=== PATIENT | male | born 1960 | race Caucasian/White ===

== ENCOUNTER 2017-01-05 18:07 | Inpatient (IN) | payer BC ==
--- NOTE | ~2017-01-05 | HP ---
History And Physical [facility] [address] [place]. [address] NAME: ROBERTO HUDSON : 60 STATUS : ADM IN [facility]#: [id number] AGE: 56 ADM/REG DATE : 01/05/17 MR#: [id number] REPORT SERV DATE: 01/06/17 DICTATED BY: JULIEN SERRA V. DATE: 01/05/17 REPORT STATUS : Draft TRANSCRIBED BY: MODL DATE: 01/05/17 DATE OF ADMISSION: 01/05/2017 A Renal H and P COMPLAINT: Dizziness and presyncope. HISTORY OF PRESENT ILLNESS: Mr. Hudson is a 56-year-old gentleman who dialyzes Thursday, , Thursday, to [facility] due to ESRD from autosomal dominant polycystic kidney disease. He also has a history of coronary artery disease requiring bypass surgery in the past and implanted defibrillator as well. He states he has had presyncope for the last 3 to 4 days. He has had some sharp substernal chest pain without radiation for the last couple of days. Occasional dyspnea with exertion. He denies any history of nausea, vomiting, or diarrhea. He did attend his usual maintenance hemodialysis session on 01/03/2017, and had some episodes of hypotension during those treatment that responded to volume resuscitation. He is followed by Dr. Elizabeth with [facility] and is scheduled to see him later this month. PAST MEDICAL HISTORY: 1. Polycystic kidney disease with ESRD. 2. Hypertension. 3. Coronary artery disease. 4. Hyperlipidemia. PAST SURGICAL HISTORY: Includes a left upper arm AV fistula placement, right IJ PermCath placement, coronary artery bypass grafting, and AICD placement. SOCIAL HISTORY: Quit smoking in 2000. No alcohol or illicit drug use. FAMILY HISTORY: Remarkable for polycystic kidney disease, heart failure, and stroke. ALLERGIES: NO KNOWN DRUG ALLERGIES. CURRENT MEDICATIONS: Include Tylenol, albuterol, amiodarone, baby aspirin, atorvastatin, Coreg, vitamin D, doxepin, fenofibrate, furosemide, hydralazine, isosorbide dinitrate, Synthroid, melatonin, Robaxin, omega-3 fatty acids, pantoprazole, potassium chloride, Effient, and Lyrica. REVIEW OF SYSTEMS: All review of systems are negative except as described above. PHYSICAL EXAMINATION: VITAL SIGNS: Temperature was 97.9, heart rate 60, blood pressure was 94/43. GENERAL: He is a pleasant middle-aged gentleman with no increased work of breathing. HEENT: Pupils equal, round, reactive to light. Sclerae were anicteric. Oropharynx is clear with no lesions. History And Physical [address] [place]. [address] NAME: ROBERTO HUDSON : 60 STATUS : ADM IN PAT#: [id number] AGE: 56 ADM/REG DATE : 01/05/17 MR#: [id number] REPORT SERV DATE: 01/06/17 DICTATED BY: JULIEN SERRA V. DATE: 01/05/17 REPORT STATUS : Draft TRANSCRIBED BY: CONSTANCE DATE: 01/05/17 NECK: Trachea midline. No thyromegaly. No supraclavicular nodes. No axillary lymph nodes. CHEST: Generally clear to auscultation with equal bilateral breath sounds. CARDIOVASCULAR: Regular rate and rhythm. No rub. ABDOMEN: Soft, nondistended. Bowel sounds are physiologic. No organomegaly. No hepatosplenomegaly. EXTREMITIES: Trace lower extremity edema. SKIN: Warm and dry. No rash or lesions. Left upper arm AV fistula with thrill and bruit. MUSCULOSKELETAL: No musculoskeletal joint tenderness, joint effusions was noted in knees or ankles bilaterally. EKG reviewed by me showed a paced rhythm QTc 500 milliseconds. LABORATORY DATA: White count 4.6, hematocrit 31%, potassium 4.2, BUN and creatinine of 88 and 7.7, calcium was 7.1, troponin of 0.03. IMPRESSION: A 56-year-old gentleman with end-stage renal disease with presyncope and history of coronary artery disease with unknown ejection fraction at the time of this dictation. He does have an implantable defibrillator and must have at least at one point had significant substrate for significant dysrhythmias. He denies any history of volume loss. He is on a few blood pressure medications and his hypotension appears to be new in onset. PLAN: 1. Check orthostatic vital signs. 2. Dialysis Thursday, , Thursday. We will use his right IJ PermCath. He said this was being used in the clinic. Serial cardiac enzymes. 3. Hold his blood pressure medications. 4. We will ask Cardiology to see. He may require further evaluation by them. 5. We will check thyroid function studies in the morning. 6. Hold diuretic therapy as well. CP/MODL Julien Serra M.D. / [id number] CC: Julien Serra M.D.
--- NOTE | ~2017-01-05 | DS ---
Discharge Summary [facility] [address] [facility] [place]. [address] NAME: ROBERTO HUDSON : 60 STATUS : DIS IN PAT#: [id number] AGE: 56 ADM/REG DATE : 01/05/17 MR#: [id number] REPORT SERV DATE: 01/19/17 DICTATED BY: ARSALAN TRIVEDI DATE: 01/16/17 REPORT STATUS : Draft TRANSCRIBED BY: MODIsha DATE: 01/16/17 Data Collection from hospitalization DISCHARGE DIAGNOSES: 1. Volume overload. 2. Coronary artery disease with decreased ejection fraction. 3. Hypertension. 4. Polycystic kidney disease - end-stage renal disease. 5. Hyperlipidemia. 6. Former smoker. CONSULTATIONS: Roberto Elizabeth MD. PROCEDURES: Cardiac catheterization and percutaneous coronary intervention on 01/07/2017. MEDICATIONS: Tylenol 1000 mg daily as needed, Proventil two inhalations as needed, Cordarone 200 mg twice a day, aspirin 81 mg daily, Lipitor 80 mg after supper, Coreg 25 mg twice a day, vitamin D 3000 units daily, Sinequan 50 mg twice a day, Lofibra 134 mg daily, Lasix 40 mg daily, levothyroxine 200 mcg daily, melatonin 5 mg at bedtime, Robaxin 750 mg twice a day, fish oil 1000 mg four times a day, Protonix 40 mg daily, Klor-Con 20 mEq twice a day, Effient 10 mg after supper, and Lyrica 100 mg twice a day. CONDITION AT DISCHARGE: Stable. DISPOSITION: The patient was discharged home on a renal diet with activities as instructed. He would follow up with Dr. Roberto Elizabeth as instructed. He would follow up for dialysis in [place] as instructed. HOSPITAL COURSE: This is a 56-year-old man who dialyzes on Tuesdays, , and Saturdays due to end-stage renal disease from autosomal dominant polycystic kidney disease; also had a history of coronary artery disease. He said that has had presyncope over the last three to four days. He has had some sharp substernal chest pain without radiation over the last couple of days as well. He had occasional dyspnea with exertion. He denied any history of nausea, vomiting, or diarrhea. He did attend his usual maintenance hemodialysis session on 01/03/2017 and had some episodes of hypotension during those treatments, that responded to volume resuscitation. He was admitted to the hospital at this time for further evaluation and treatment. Upon admission, we were going to check his orthostatic vital signs. Dialysis therapy would be performed. Serial cardiac enzymes would be checked. Blood pressure medications were held. Thyroid function studies would also be checked. Diuretic therapy would be held. The following day, he was seen by Dr. Roberto Elizabeth. The patient has a history of coronary artery disease and ischemic cardiomyopathy with a baseline ejection fraction of 25%-30% based on recent echocardiogram from June 2016. The patient reports that he had been in his usual state of health until the day of admission when he reported while doing dishes the abrupt onset of sharp substernal/epigastric pain. He reports that this was associated with dyspnea and a sensation of weakness and numbness in the upper extremity. He does endorse an exertion on dyspnea and intimate that his chest pain may also be exacerbated somewhat with Discharge Summary [address] [address] NAME: ROBERTO HUDSON : 60 STATUS : DIS IN PAT#: [id number] AGE: 56 ADM/REG DATE : 01/05/17 MR#: [id number] REPORT SERV DATE: 01/19/17 DICTATED BY: ARSALAN TRIVEDI DATE: 01/16/17 REPORT STATUS : Draft TRANSCRIBED BY: CONSTANCE DATE: 01/16/17 exertion. He did report an episode of severe weakness bordering on syncope. At this point in time, he was chest pain free. He was breathing easily. He denied any orthopnea. Aspirin and Effient were continued. We would consider starting a heparin drip for ongoing symptoms of chest pain. Myocardial infarction had been excluded. It was felt that the patient should undergo cardiac catheterization to define the patient's anatomy and exclude a large region of intervenable myocardial ischemia. On 01/07/2017, he was taken to the cardiac cath lab radiological technologist where he underwent the above-mentioned procedure by Dr. Roberto Elizabeth. He tolerated this well, and there were no complications. Midodrine had been added. He had undergone an echocardiogram as well. Catheterization results were reviewed. On postop day #1, he had mild shortness of breath. He had no chest pain or palpitations. He had no other complaints. Telemetry revealed normal sinus rhythm with chronic left bundle-branch block. The patient had moderately dilated left ventricle with severe left ventricular systolic dysfunction, ejection fraction 30%. There was more focal basal inferior hypokinesis and moderate left ventricular diastolic dysfunction. There was mild right ventricular enlargement with mildly decreased systolic function. There was moderate biatrial enlargement. There was mildly dilated aortic root at 4.0 cm. There was [id number] aortic mitral and tricuspid regurgitation. There was no significant change noted compared to previous echocardiogram dated 07/05/2016. Discharge planning was performed. On 01/09/2017, hemodialysis therapy continued. Creatinine level was 5.90. His lungs were clear. He was asymptomatic. Discharge instructions were given. Due to his improved and stable condition, he was discharged home with the above-stated instructions. Information collected by: Janet Galan I submit the above information as my discharge summary. TG/MODL Arsalan Trivedi M.D. / [id number] CC: Lou Woodruff MD
--- NOTE | ~2017-01-05 | CN ---
Consultation Report [facility] [address] [place]. [address] NAME: ROBERTO HUDSON : 60 STATUS : ADM IN PAT#: [id number] AGE: 56 ADM/REG DATE : 01/05/17 MR#: [id number] REPORT SERV DATE: 01/06/17 DICTATED BY: TAMEKAROBERTO BETSEY DATE: 01/06/17 REPORT STATUS : Draft TRANSCRIBED BY: MODL DATE: 01/06/17 CARDIOLOGY CONSULTATION NOTE DATE OF CONSULTATION: 01/06/2017 REASON FOR CONSULTATION: Chest pain and near syncopal event in a 56-year-old man with known severe coronary heart disease and ischemic cardiomyopathy. HISTORY OF PRESENT ILLNESS: Mr. Hudson is a medically complicated 56-year-old man, who is well known to me from Cardiology Clinic. The patient has chronic kidney disease, which recently progressed to end-stage renal disease. The patient is treated with hemodialysis and has been for the past several months. The patient also has history of coronary artery disease, and ischemic cardiomyopathy with a baseline ejection fraction of 25%-30% based on recent echocardiogram from 06/2016. The patient is status post coronary artery bypass grafting surgery with subsequent percutaneous coronary intervention. The patient was apparently in his usual state of health until yesterday morning. The patient reports that he was doing dishes when he had the abrupt onset of a sharp substernal/epigastric pain. He reports that, this was associated with dyspnea and a sensation of weakness and numbness in his upper extremities. The patient denies any nausea or diaphoresis. He does endorse exertional dyspnea, and intimates that his chest pain may also be exacerbated somewhat with exertion. The patient denies orthopnea or paroxysmal nocturnal dyspnea. He does report an episode of severe weakness bordering on syncope. He denies any palpitations associated with this. The patient did not sense any defibrillator discharges. At this time, the patient is chest pain-free. He is breathing easily and denies orthopnea. PAST MEDICAL HISTORY: 1. Polycystic kidney disease with end-stage renal disease. 2. Hypertension. 3. Coronary artery disease, status post coronary artery bypass grafting. 4. Dyslipidemia. PAST SURGICAL HISTORY: 1. The patient has had coronary artery bypass grafting in the distant past. He had a cardiac catheterization in 2014 with percutaneous coronary intervention to the ramus intermedius. He has had placement of an AICD. Of note, the patient has unusual anatomy of his coronary sinus, and a biventricular pacemaker was unable to be placed. 2. The patient has had a recent AV fistula placement for hemodialysis. FAMILY HISTORY: Significant for polycystic kidney disease, congestive heart failure, and stroke. SOCIAL HISTORY: The patient quit smoking in the year 2000. He has no ongoing tobacco, Consultation Report [place] [id number] [facility] [place]. [address] NAME: ROBERTO HUDSON : 60 STATUS : ADM IN PAT#: [id number] AGE: 56 ADM/REG DATE : 01/05/17 MR#: [id number] REPORT SERV DATE: 01/06/17 DICTATED BY: ROBERTO ELIZABETH DATE: 01/06/17 REPORT STATUS : Draft TRANSCRIBED BY: CONSTANCE DATE: 01/06/17 alcohol, or drug use. ALLERGIES: THE PATIENT HAS NO KNOWN MEDICATION ALLERGIES. HOME MEDICATIONS: 1. Acetaminophen 1 g p.o. daily as needed. 2. Albuterol inhaler two puffs q.4 hours as needed for shortness of breath. 3. Amiodarone 200 mg p.o. twice daily. 4. Aspirin 81 mg p.o. daily. 5. Atorvastatin 80 mg p.o. at bedtime. 6. Carvedilol 25 mg p.o. twice daily. 7. Vitamin D 3000 units p.o. daily. 8. Sinequan 50 mg p.o. twice daily. 9. Fenofibrate 134 mg p.o. daily. 10.Lasix 20 mg p.o. daily. 11.Hydralazine 25 mg p.o. twice daily. 12.Isosorbide dinitrate 20 mg p.o. twice daily. 13.Levothyroxine 200 mcg p.o. daily. 14.Melatonin 5 mg p.o. at bedtime. 15.Methocarbamol 750 mg p.o. twice daily. 16.Fish oil supplement 1 g p.o. four times daily. 17.Pantoprazole 40 mg p.o. daily. 18.Potassium chloride 20 mEq p.o. twice daily. 19.Effient 10 mg p.o. daily. 20.Lyrica 100 mg p.o. twice daily. REVIEW OF SYSTEMS: A complete 12-system review was performed. This is noncontributory except for the pertinent positives and negatives noted in the history of present illness above. PHYSICAL EXAMINATION: VITAL SIGNS: Temperature is 97.7 degrees Fahrenheit, blood pressure is 133/60 mmHg, heart rate is 88 beats per minute and regular, respirations 18, and oxygen saturation is 98% on room air. CONSTITUTIONAL: The patient is an obese and chronically ill-appearing white man, who is currently in no acute distress. EYES: PERRL, EOMI, clear conjunctiva. HEAD/MNT: NCAT with moist mucous membranes and grossly normal hard and soft palate. NECK: Supple with no obvious thyromegaly or lymphadenopathy CARDIOVASCULAR: There is a regular rhythm with a normal S1 and a physiologically split second heart sound. No obvious murmurs, rubs, or gallops are noted at this time. The jugular venous pressure is grossly normal. PULMONARY: Clear to auscultation bilaterally with no wheezing, rales, rhonchi, or dullness to percussion. ABDOMINAL: Soft, non-tender, non-distended with no hepatosplenomegaly noted. Consultation Report [address] [place]. [address] NAME: ROBERTO HUDSON : 60 STATUS : ADM IN [facility]#: [id number] AGE: 56 ADM/REG DATE : 01/05/17 MR#: [id number] REPORT SERV DATE: 01/06/17 DICTATED BY: ROBERTO ELIZABETH DATE: 01/06/17 REPORT STATUS : Draft TRANSCRIBED BY: CONSTANCE DATE: 01/06/17 EXTREMITIES: There is trace edema at the ankles with no significant clubbing or cyanosis. There is a 1 to 2+ right femoral artery pulse. MUSCULOSKELETAL: Grossly normal strength and range of motion in all extremities INTEGUMENTARY: Skin appears intact with no bruises, wounds or active lesions noted NEURO/PSYC: Alert and oriented x3, with no dysarthria, facial droop or lateralizing weakness noted. 12-LEAD EKG: The patient's 12-lead EKG shows sinus rhythm with a first degree AV block and then left bundle-branch block pattern which is chronic. There are no specific signs of ischemia or infarction. LABORATORY DATA: White blood cell count 4.6, hemoglobin 10.4, hematocrit 31, platelets 125. Electrolytes show a sodium of 138, potassium 4.2, chloride is 100, CO2 of 23, BUN 88, creatinine 7.73, glucose is 90, calcium 7.1, magnesium 1.9. Troponin I is 0.03. A second troponin I is also 0.03. Random cortisol was 19.5. ASSESSMENT AND PLAN: 1. Chest pain with typical and atypical features: The patient describes a sharp chest pain which is not entirely typical for angina, but the fact that the pain was apparently provoked by exertion and associated with shortness of breath are concerning features. The patient has advanced coronary heart disease with a chronic total occlusion of his right coronary artery and a stent placed in a relatively large ramus intermedius branch in the year 2013. The patient would not be likely to benefit from a myocardial perfusion imaging study given his complex anatomy. We will therefore proceed with cardiac catheterization to define the patient's anatomy and exclude a large region of intervenable myocardial ischemia. Risks and benefits of cardiac catheterization have been discussed with the patient. Now that the patient is on hemodialysis, the risk of contrast exposure is somewhat decreased. The patient will continue aspirin and Effient. We will consider starting a heparin drip for ongoing symptoms of chest pain. Again, myocardial infarction has been excluded. 2. Chronic systolic heart failure: We will start lisinopril 5 mg p.o. daily, if this is agreeable to the Nephrology Service. The patient appears grossly euvolemic at this time. 3. End-stage renal disease: The Nephrology Service has admitted the patient and the patient has received hemodialysis today. Thank you for allowing me to participate in the care Mr. Hudson. The Cardiology Service will continue to follow the patient closely during this admission. VALDOH/MODIsha Roberto Elizabeth MD Consultation Report [address] [address] NAME: ROBERTO HUDSON : 60 STATUS : ADM IN PAT#: [id number] AGE: 56 ADM/REG DATE : 01/05/17 MR#: [id number] REPORT SERV DATE: 01/06/17 DICTATED BY: ROBERTO ELIZABETH DATE: 01/06/17 REPORT STATUS : Draft TRANSCRIBED BY: CONSTANCE DATE: 01/06/17 / [id number] CC: Julien Serra M.D.
[2017-01-05 16:41] LABS: BASOPHILS 0.9 %; BASOPHILS ABSOLUTE 0.04 10/3/uL (0.0-0.16); EOSINOPHILS ABSOLUTE 0.09 10/3/uL (0.0-0.53); HEMOGLOBIN 10.4 g/dL (13.6-17.8); IMMATURE GRANULOCYTES 1.3 %; IMMATURE GRANULOCYTES ABSOLUTE 0.06 10/3/uL (0.0-0.11); LYMPHOCYTES 18.9 %; LYMPHOCYTES ABSOLUTE 0.87 10/3/uL (0.67-4.30); MEAN CORPUS HGB CONC 33.3 g/dL (32.0-36.0); MEAN CORPUSCULAR HEMOGLOB 32.5 pg (26.0-34.0); MEAN PLATELET VOLUME 11.2 fL (9.2-13.0); MONOCYTES 11.3 %; MONOCYTES ABSOLUTE 0.52 10/3/uL (0.21-1.20); NEUTROPHILS 65.6 %; NEUTROPHILS ABSOLUTE 3.02 10/3/uL (2.02-8.40); PLATELET COUNT 125 10/3/uL (150-400); RBC DISTRIBUTION WIDTH 14.7 % (12.0-16.0); WHITE BLOOD CELLS 4.6 10/3/uL (4.5-10.5)
[2017-01-05 16:42] LABS: HEMATOCRIT 31.2 % (40.0-51.0); MANUAL DIFF NO %; MEAN CORPUSCULAR VOLUME 97.5 fL (80-100)
[2017-01-05 16:46] LABS: INTERNATIONAL NORMAL RATI 1.2 UNITS (-); PARTIAL THROMBO TIME 31.4 SEC (22.5-37.2); PROTIME (NOT ORD) 14.9 SEC (12.0-14.5)
[2017-01-05 16:55] LABS: ACETAMINOPHEN LEVEL (TYLENOL) < 2.0 MCG/ML (10.0-20.0); ALCOHOL < 10 MG/DL (0); SALICYLATE < 1.7 MG/DL (-)
[2017-01-05 16:57] LABS: CALCIUM, SERUM 7.1 MG/DL (8.5-10.4); CHEST PAIN PROFILE TAT 0 Hrs 22 Mins; CHLORIDE, SERUM 100 MMOL/L (96-112); CO2 (CARBON DIOXIDE) 23 MMOL/L (24-34); POTASSIUM, SERUM 4.2 MMOL/L (3.5-5.3); SODIUM, SERUM 138 MMOL/L (135-148); TROPONIN I 0.03 NG/ML (<0.05)
[2017-01-05 16:59] LABS: BUN (BLOOD UREA NITROGEN) 88 MG/DL (6-23); CREATININE 7.73 MG/DL (0.70-1.30); GFR AFRICAN AMERICAN 8 ML/MIN (>=60); GFR NON AFRICAN AMERICAN 7 ML/MIN (>=60); GLUCOSE, SERUM 90 MG/DL (60-99); LACTATE 0.3 MMOL/L (0.3-2.4)
[~2017-01-05 18:07] MED LIST: ACET500CAP PO; APRES25 PO; ASAB PO; BIDIL20/37 PO; CORDARONE PO; COREG25 PO; EFFIENT10 PO; FISH-EPA1000 MG PO; ISORDIL20 PO; KLOR-CON M2020 MEQ PO; L20 PO; LEVOTHYROXIN100 MCG PO; LEVOTHYROXIN200 MCG PO; LIPITOR80 MG PO; LOFIBRA134 MG PO; LYRICA100 MG PO; LYRICA150 MG PO; MELATONIN5 M1 PO; METHOC750B PO; PROTONIX PO; PROVHFA PO; SINEQUAN 50 MG50 MG PO; VITAMIN D1000 UNI1 PO; VITAMIN D31000 UNIT PO
[2017-01-06 07:11] LABS: BASOPHILS 0.8 %; BASOPHILS ABSOLUTE 0.05 10/3/uL (0.0-0.16); EOSINOPHILS 1.5 %; EOSINOPHILS ABSOLUTE 0.09 10/3/uL (0.0-0.53); HEMATOCRIT 31.2 % (40.0-51.0); HEMOGLOBIN 10.2 g/dL (13.6-17.8); IMMATURE GRANULOCYTES ABSOLUTE 0.06 10/3/uL (0.0-0.11); LYMPHOCYTES 13.6 %; LYMPHOCYTES ABSOLUTE 0.82 10/3/uL (0.67-4.30); MANUAL DIFF NO %; MEAN CORPUS HGB CONC 32.7 g/dL (32.0-36.0); MEAN CORPUSCULAR HEMOGLOB 32.3 pg (26.0-34.0); MEAN CORPUSCULAR VOLUME 98.7 fL (80-100); MEAN PLATELET VOLUME 11.6 fL (9.2-13.0); MONOCYTES 12.7 %; MONOCYTES ABSOLUTE 0.77 10/3/uL (0.21-1.20); NEUTROPHILS 70.4 %; NEUTROPHILS ABSOLUTE 4.26 10/3/uL (2.02-8.40); PLATELET COUNT 118 10/3/uL (150-400); RBC DISTRIBUTION WIDTH 14.9 % (12.0-16.0); RED CELL COUNT 3.16 10/6/uL (4.7-6.1); WHITE BLOOD CELLS 6.1 10/3/uL (4.5-10.5)
[2017-01-06 07:50] LABS: ALBUMIN 3.3 G/DL (3.5-5.0); BUN (BLOOD UREA NITROGEN) 94 MG/DL (6-23); CALCIUM, SERUM 7.4 MG/DL (8.5-10.4); CHLORIDE, SERUM 103 MMOL/L (96-112); CO2 (CARBON DIOXIDE) 21 MMOL/L (24-34); CREATININE 7.88 MG/DL (0.70-1.30); FREE T4 1.34 NG/DL (0.76-1.46); GFR AFRICAN AMERICAN 8 ML/MIN (>=60); GFR NON AFRICAN AMERICAN 7 ML/MIN (>=60); GLUCOSE, SERUM 80 MG/DL (60-99); PHOSPHORUS, SERUM 7.1 MG/DL (2.5-4.5); POTASSIUM, SERUM 3.9 MMOL/L (3.5-5.3); SODIUM, SERUM 140 MMOL/L (135-148); TROPONIN I 0.03 NG/ML (<0.05)
[2017-01-07 05:15] LABS: BASOPHILS 0.7 %; BASOPHILS ABSOLUTE 0.03 10/3/uL (0.0-0.16); EOSINOPHILS 2.2 %; EOSINOPHILS ABSOLUTE 0.09 10/3/uL (0.0-0.53); HEMATOCRIT 30.7 % (40.0-51.0); HEMOGLOBIN 10.2 g/dL (13.6-17.8); IMMATURE GRANULOCYTES ABSOLUTE 0.04 10/3/uL (0.0-0.11); LYMPHOCYTES 17.2 %; LYMPHOCYTES ABSOLUTE 0.71 10/3/uL (0.67-4.30); MEAN CORPUS HGB CONC 33.2 g/dL (32.0-36.0); MEAN CORPUSCULAR HEMOGLOB 32.5 pg (26.0-34.0); MEAN CORPUSCULAR VOLUME 97.8 fL (80-100); MEAN PLATELET VOLUME 11.2 fL (9.2-13.0); MONOCYTES 15.5 %; MONOCYTES ABSOLUTE 0.64 10/3/uL (0.21-1.20); NEUTROPHILS 63.4 %; NEUTROPHILS ABSOLUTE 2.61 10/3/uL (2.02-8.40); PLATELET COUNT 111 10/3/uL (150-400); RED CELL COUNT 3.14 10/6/uL (4.7-6.1); WHITE BLOOD CELLS 4.1 10/3/uL (4.5-10.5)
[2017-01-07 05:16] LABS: MANUAL DIFF NO %
[2017-01-07 05:32] LABS: CALCIUM, SERUM 7.4 MG/DL (8.5-10.4); CHLORIDE, SERUM 106 MMOL/L (96-112); CHOL/HDL RATIO(NOT ORDER) 6.3 (0-5); CHOLESTEROL 189 MG/DL (< 200); CO2 (CARBON DIOXIDE) 24 MMOL/L (24-34); GFR AFRICAN AMERICAN 12 ML/MIN (>=60); GFR NON AFRICAN AMERICAN 11 ML/MIN (>=60); GLUCOSE, SERUM 87 MG/DL (60-99); HDL CHOLESTEROL 30 MG/DL (> 39); LDL CHOLESTEROL 117 MG/DL (< 130); NON-HDL CHOLESTEROL 159 MG/DL (< 160); POTASSIUM, SERUM 3.7 MMOL/L (3.5-5.3); SODIUM, SERUM 142 MMOL/L (135-148); TRIGLYCERIDE 212 MG/DL (< 150)
[2017-01-07 05:34] LABS: BUN (BLOOD UREA NITROGEN) 57 MG/DL (6-23); CREATININE 5.56 MG/DL (0.70-1.30)
[2017-01-08 04:41] LABS: BASOPHILS 1.1 %; BASOPHILS ABSOLUTE 0.05 10/3/uL (0.0-0.16); EOSINOPHILS 2.2 %; HEMATOCRIT 32.8 % (40.0-51.0); HEMOGLOBIN 10.4 g/dL (13.6-17.8); IMMATURE GRANULOCYTES 0.9 %; IMMATURE GRANULOCYTES ABSOLUTE 0.04 10/3/uL (0.0-0.11); LYMPHOCYTES 14.6 %; LYMPHOCYTES ABSOLUTE 0.66 10/3/uL (0.67-4.30); MEAN CORPUS HGB CONC 31.7 g/dL (32.0-36.0); MEAN CORPUSCULAR HEMOGLOB 31.4 pg (26.0-34.0); MEAN CORPUSCULAR VOLUME 99.1 fL (80-100); MEAN PLATELET VOLUME 11.5 fL (9.2-13.0); MONOCYTES 14.2 %; MONOCYTES ABSOLUTE 0.64 10/3/uL (0.21-1.20); NEUTROPHILS ABSOLUTE 3.03 10/3/uL (2.02-8.40); PLATELET COUNT 123 10/3/uL (150-400); RBC DISTRIBUTION WIDTH 15.3 % (12.0-16.0); RED CELL COUNT 3.31 10/6/uL (4.7-6.1); WHITE BLOOD CELLS 4.5 10/3/uL (4.5-10.5)
[2017-01-08 04:49] LABS: ALBUMIN 3.2 G/DL (3.5-5.0); BUN (BLOOD UREA NITROGEN) 57 MG/DL (6-23); CALCIUM, SERUM 7.5 MG/DL (8.5-10.4); CHLORIDE, SERUM 104 MMOL/L (96-112); CO2 (CARBON DIOXIDE) 24 MMOL/L (24-34); GFR AFRICAN AMERICAN 11 ML/MIN (>=60); GFR NON AFRICAN AMERICAN 10 ML/MIN (>=60); GLUCOSE, SERUM 88 MG/DL (60-99); POTASSIUM, SERUM 3.9 MMOL/L (3.5-5.3); SODIUM, SERUM 142 MMOL/L (135-148)
[2017-01-08 04:50] LABS: PHOSPHORUS, SERUM 4.6 MG/DL (2.5-4.5)
[2017-01-08 04:52] LABS: MANUAL DIFF NO %
[2017-01-09 10:49] LABS: BASOPHILS 0.7 %; BASOPHILS ABSOLUTE 0.05 10/3/uL (0.0-0.16); EOSINOPHILS 2.1 %; EOSINOPHILS ABSOLUTE 0.15 10/3/uL (0.0-0.53); HEMATOCRIT 35.5 % (40.0-51.0); HEMOGLOBIN 11.4 g/dL (13.6-17.8); IMMATURE GRANULOCYTES 0.4 %; IMMATURE GRANULOCYTES ABSOLUTE 0.03 10/3/uL (0.0-0.11); LYMPHOCYTES 10.8 %; LYMPHOCYTES ABSOLUTE 0.76 10/3/uL (0.67-4.30); MEAN CORPUS HGB CONC 32.1 g/dL (32.0-36.0); MEAN CORPUSCULAR HEMOGLOB 31.6 pg (26.0-34.0); MEAN CORPUSCULAR VOLUME 98.3 fL (80-100); MEAN PLATELET VOLUME 11.9 fL (9.2-13.0); MONOCYTES 10.1 %; MONOCYTES ABSOLUTE 0.71 10/3/uL (0.21-1.20); NEUTROPHILS 75.9 %; NEUTROPHILS ABSOLUTE 5.32 10/3/uL (2.02-8.40); PLATELET COUNT 135 10/3/uL (150-400); RBC DISTRIBUTION WIDTH 15.2 % (12.0-16.0); RED CELL COUNT 3.61 10/6/uL (4.7-6.1)
[2017-01-09 10:50] LABS: MANUAL DIFF NO %
[2017-01-09 10:58] LABS: ALBUMIN 3.5 G/DL (3.5-5.0); BUN (BLOOD UREA NITROGEN) 47 MG/DL (6-23); CALCIUM, SERUM 7.8 MG/DL (8.5-10.4); CHLORIDE, SERUM 103 MMOL/L (96-112); CO2 (CARBON DIOXIDE) 25 MMOL/L (24-34); GFR AFRICAN AMERICAN 10 ML/MIN (>=60); GFR NON AFRICAN AMERICAN 8 ML/MIN (>=60); GLUCOSE, SERUM 129 MG/DL (60-99); PHOSPHORUS, SERUM 3.8 MG/DL (2.5-4.5); SODIUM, SERUM 140 MMOL/L (135-148)
[2017-01-18] MEDS ORDERED: ISORDIL20 PO (18:00)
[2017-01-18] MEDS ORDERED: APRES25 PO (18:02)
[2017-03-07] MEDS ORDERED: KLOR-CON M2020 MEQ PO (18:40)
[2017-03-07] MEDS ORDERED: TRILIPIX135 MG PO (18:41)
[2017-03-07] MEDS ORDERED: LIPITOR80 MG PO (18:42)
[2017-03-07] MEDS ORDERED: SINEQUAN 50 MG50 MG PO (18:43)
[2017-03-07] MEDS ORDERED: LEVOTHYROXIN200 MCG PO (18:43)
[2017-03-07] MEDS ORDERED: COREG25 PO (18:44)
[2017-03-07] MEDS ORDERED: CORDARONE PO (18:44)
[2017-03-07] MEDS ORDERED: ASAB PO (18:48)
[2017-03-07] MEDS ORDERED: L20 PO (18:48)
[2017-03-07] MEDS ORDERED: LYRICA100 MG PO (18:48)
[2017-03-07] MEDS ORDERED: EFFIENT10 PO (18:48)
[2017-03-07] MEDS ORDERED: MELATONIN5 M1 PO (18:49)
[2017-03-07] MEDS ORDERED: FISH-EPA1000 MG PO (18:50)
[2017-03-07] MEDS ORDERED: APRES25 PO (18:50)
[2017-03-07] MEDS ORDERED: METHOC750B PO (18:50)
[2017-03-07] MEDS ORDERED: ISORDIL20 PO (18:51)
[2017-03-07] MEDS ORDERED: VITAMIN D31000 UNIT PO (18:52)
[2017-03-07] MEDS ORDERED: PROTONIX PO (18:52)
[2017-07-22] MEDS ORDERED: NORCO1 TA2 PO (00:50)
[2017-07-22] MEDS ORDERED: Z100 PO (00:50)
[2017-07-22] MEDS ORDERED: LIPITOR80 MG PO (00:50)
[2017-07-22] MEDS ORDERED: L40 PO (00:51)
[2017-07-22] MEDS ORDERED: COREG25 PO (00:51)
[2017-07-22] MEDS ORDERED: LOFIBRA134 MG PO (00:51)
[2017-07-22] MEDS ORDERED: BUSPAR5 PO (00:51)
[2017-07-22] MEDS ORDERED: NITROSTAT0.4 MG SL (00:52)
[2017-07-22] MEDS ORDERED: APRES25 PO (00:52)
[2017-07-22] MEDS ORDERED: LYRICA150 MG PO (00:52)
[2017-07-22] MEDS ORDERED: SYN.15 PO (00:52)
[2017-07-22] MEDS ORDERED: RAN500 PO (00:53)
[2017-07-22] MEDS ORDERED: PROTONIX PO (00:53)
[2017-07-22] MEDS ORDERED: EFFIENT10 PO (00:53)
[2017-07-22] MEDS ORDERED: CORDARONE PO (00:54)
[2017-07-22] MEDS ORDERED: ASTELIN NAS (00:55)
[2017-07-22] MEDS ORDERED: TUMSROLL PO (00:56)
[2017-07-22] MEDS ORDERED: MELATONIN5 M1 PO (00:57)
[2017-07-22] MEDS ORDERED: FISH-EPA1000 MG PO (00:57)
[2017-07-24] MEDS ORDERED: PROAMAT5 PO (14:26)
[2017-07-24] MEDS ORDERED: ASA5GR PO (14:30)
== END 2017-01-09 15:45 | disposition home or self-care (01) | DRG 246 ==
LOC: ER 18:07 → 1SO 18:59 → SSU1 01-07 15:08
PROVIDERS: Emergency Medicine; Internal Medicine Cardiovascular Disease; Internal Medicine Nephrology; Registered Nurse
PROC: 027135Z Dilation of Coronary Artery, Two Arteries with Two Drug-eluting Intraluminal Devices, Percutaneous Approach (ICD-10-PCS; principal; 2017-01-07)
PROC: B2151ZZ Fluoroscopy of Left Heart using Low Osmolar Contrast (ICD-10-PCS; 2017-01-07)
PROC: B2131ZZ Fluoroscopy of Multiple Coronary Artery Bypass Grafts using Low Osmolar Contrast (ICD-10-PCS; 2017-01-07)
PROC: B2181ZZ Fluoroscopy of Left Internal Mammary Bypass Graft using Low Osmolar Contrast (ICD-10-PCS; 2017-01-07)
PROC: B2111ZZ Fluoroscopy of Multiple Coronary Arteries using Low Osmolar Contrast (ICD-10-PCS; 2017-01-07)
PROC: 4A023N7 Measurement of Cardiac Sampling and Pressure, Left Heart, Percutaneous Approach (ICD-10-PCS; 2017-01-07)
DX: I13.2 Hypertensive heart and chronic kidney disease with heart failure and with stage 5 chronic kidney disease, or end stage renal disease (principal); N18.6 End stage renal disease; I50.22 Chronic systolic (congestive) heart failure; I25.5 Ischemic cardiomyopathy; I25.10 Atherosclerotic heart disease of native coronary artery without angina pectoris; E78.00 Pure hypercholesterolemia, unspecified; Z95.1 Presence of aortocoronary bypass graft; Z99.2 Dependence on renal dialysis; Z95.810 Presence of automatic (implantable) cardiac defibrillator; Z87.891 Personal history of nicotine dependence
CPT/HCPCS: 71010; 80048; 80061; 80069; 80307; 82330; 82533; 83605; 83735; 84439; 84443; 84484; 85025; 85347; 85610; 85730; 87040; 93005; 93306; 93459; 99152; 99153; 99285; A9270-GY; C1725; C1769; C1874; C1887; C1894; C9600; G0257; J2250; J2800; J2997; J3010; Q9967

== ENCOUNTER 2017-01-18 21:11 | Inpatient (IN) | payer BC ==
--- NOTE | ~2017-01-18 | DS ---
Discharge Summary [facility] [address] [facility] [place]. [address] NAME: ROBERTO HUDSON : 60 STATUS : DIS IN PAT#: [id number] AGE: 56 ADM/REG DATE : 01/18/17 MR#: [id number] REPORT SERV DATE: 01/29/17 DICTATED BY: KOBE RIOS DATE: 01/28/17 REPORT STATUS : Draft TRANSCRIBED BY: CONSTANCE DATE: 01/28/17 Data Collection from hospitalization DISCHARGE DIAGNOSES: 1. End-stage renal disease. 2. Chest pain. 3. Hypotension. 4. Hypertension. 5. Chronic systolic congestive heart failure. 6. Hypercholesterolemia. 7. Ischemic cardiomyopathy. 8. Former smoker. 9. Depression. 10.History of polycystic kidney disease. CONSULTATION: Dr. Valentin Avendaño. PROCEDURES PERFORMED: None. DISCHARGE MEDICATIONS: Tylenol 1000 mg daily as needed, Proventil two inhalations as needed, Cordarone 200 mg twice a day as instructed, aspirin 81 mg daily, Lipitor 80 mg after supper, Coreg 12.5 mg twice a day, vitamin D 3000 units daily, Sinequan 50 mg twice a day, Lofibra 134 mg daily, Isordil 20 mg twice a day, levothyroxine 200 mcg daily, melatonin 5 mg at bedtime, Robaxin 750 mg twice a day, fish oil 2000 mg twice a day, Protonix 40 mg daily, Effient 10 mg after supper, Lyrica 100 mg twice a day. CONDITION AT DISCHARGE: Stable. DISPOSITION: The patient was discharged home on a renal diet with activities as instructed. HOSPITAL COURSE: This is a 56-year-old man, who dialyzes on Mondays, Wednesdays, and Fridays. He has been on dialysis for six months due to polycystic kidney disease. He has significant atherosclerotic cardiovascular disease and had undergone bypass surgery in 2009. He has chronic systolic dysfunction. He has an AICD related to his reduced ejection fraction. His last cardiac catheterization had been in 2014 with percutaneous intervention to his ramus intermediate. He was making breakfast on the morning prior to this admission when he had an episode of severe retrosternal chest pain, localized to his chest with diaphoresis and shortness of breath. He took a couple of nitroglycerin and laid down with some relief of his pain. However, his family called the EMS and was brought here to [facility] and his troponins were found to be 0.05, 0.06, and 0.07. He was admitted to the hospital at this time for further evaluation and treatment. Upon admission, he was chest pain free. He was seen by Dr. Valentin Avendaño regarding chest pain. His troponins have been borderline elevated and flat with no significant change. Creatinine level was 6.79. Electrocardiogram showed paced rhythm. Nonspecific intraventricular conduction delay. His chest pain was fairly atypical overall. He said it was similar to what he had previously. At that time, he did have a ramus lesion. It was unclear whether he was having ischemia. At that time, his troponins were not elevated and Discharge Summary [place] [id number] [facility] [place]. [address] NAME: ROBERTO HUDSON : 60 STATUS : DIS IN PAT#: [id number] AGE: 56 ADM/REG DATE : 01/18/17 MR#: [id number] REPORT SERV DATE: 01/29/17 DICTATED BY: KOBE RIOS DATE: 01/28/17 REPORT STATUS : Draft TRANSCRIBED BY: CONSTANCE DATE: 01/28/17 that were now borderline elevated and flat. He did not think we should pursue further invasive evaluation unless he had recurrent pain and objective findings of ischemia either by further rising of troponin or changes in his EKG or unstable chest pain syndrome. He recommended that he continue his current medical therapy. Troponin would be rechecked as well as an EKG. He did have some hypotension. The patient does have a history of hypertension. On the , the patient said he had not had any recurrence of chest pain. He denied any shortness of breath. The nurse reported that he was wearing 2 L nasal cannula at night due to obstructive sleep apnea. His O2 saturation had decreased to 88% when sleeping while on room air. With 2 L nasal cannula, it increased to 97% to 98%. Coreg was decreased. Discharge planning was performed. On 01/21/2017, he had no specific complaints. He had no further chest pain. He denied shortness of breath. Discharge instructions were given. Due to his improved and stable condition, he was discharged home with the above- stated instructions. Information collected by: Janet Galan I submit the above information as my discharge summary. KARYNA/CONSTANCE Kobe Rios M.D. / [id number] CC: Lou Woodruff M.D., Ph.D, F.A.C.C.
--- NOTE | ~2017-01-18 | CN ---
Consultation Report [facility] [address] [facility] [place]. [address] NAME: ROBERTO GRIMALDO : 60 STATUS : ADM Fauzia PAT#: [id number] AGE: 56 ADM/REG DATE : 01/18/17 MR#: [id number] REPORT SERV DATE: 01/19/17 DICTATED BY: VALENTIN SINGH DATE: 01/19/17 REPORT STATUS : Draft TRANSCRIBED BY: MODL DATE: 01/19/17 CARDIOLOGY CONSULTATION DATE OF CONSULTATION: [facility] PHYSICIAN: Roberto Elizabeth MD REASON FOR CONSULTATION: Chest pain. HISTORY OF PRESENT ILLNESS: Mr. Grimaldo is a 56-year-old man with coronary artery disease and ischemic cardiomyopathy. He was just admitted a couple weeks ago with sharp chest pain. He had an evaluation including arteriography and PCI and initially did well. He described new onset sharp chest pain a couple weeks ago. It had some exertional component at that time. He had an arteriogram showing multi-vessel disease, patent grafts, but a lesion in a ramus branch which underwent PCI, since that time, his pain improved, but it did not resolve completely. He had some ongoing pain, and yesterday had some nausea and some worsening sharp chest pain, it was a focal right lower chest pain that he points with 1 finger. It was worse when he got up and moved around and better when he laid down but did not appear as much exertional as it did more musculoskeletal. He is pain-free at present. His troponins were borderline elevated and flat with no significant change. REVIEW OF SYSTEMS: The review of systems is as per the history of present illness. Ten other systems are negative. PAST MEDICAL HISTORY: 1. Coronary artery disease with two previous bypass surgery and previous percutaneous intervention as above. 2. End-stage renal disease, on chronic hemodialysis. 3. Nonsustained ventricular tachycardia with history of ICD implantation. 4. Chronic systolic congestive heart failure. 5. Hypertension. 6. Hypercholesterolemia. 7. Ischemic cardiomyopathy with EF of 30% by echo in 12/2016. FAMILY HISTORY: Father with heart attack in an early age. SOCIAL HISTORY: The patient is disabled; ; former smoker, now quit; former moderate to heavy alcohol, now quit. ALLERGIES: NO KNOWN DRUG ALLERGIES. HOME MEDICATIONS: Tylenol as directed, Proventil, Cordarone 200 mg p.o. b.i.d., aspirin 81 daily, Lipitor 10 daily, carvedilol 25 mg p.o. b.i.d., vitamin D, doxepin, Lofibra, Lasix 20 Consultation Report [address] [place]. [address] NAME: ROBERTO GRIMALDO : 60 STATUS : ADM Fauzia PAT#: [id number] AGE: 56 ADM/REG DATE : 01/18/17 MR#: [id number] REPORT SERV DATE: 01/19/17 DICTATED BY: VALENTIN SINGH DATE: 01/19/17 REPORT STATUS : Draft TRANSCRIBED BY: MODL DATE: 01/19/17 daily, hydralazine 25 p.o. q.12, Isordil 20 mg p.o. b.i.d., levothyroxine, melatonin, Robaxin, fish oil, Protonix, potassium, Effient 10 daily, Lyrica. PHYSICAL EXAMINATION: VITAL SIGNS: Heart rates 60, blood pressure 116/59 GENERAL: The patient is pleasant white male, in no apparent distress. HEENT: Conjunctivae are anicteric, no xanthelasma, lips without cyanosis. NECK: Supple, normal JVP, carotids +2 without bruit. LUNGS: Clear to auscultation bilaterally, no wheezes, rales or rhonchi. CARDIOVASCULAR: Regular rate and rhythm. Normal S1 and S2 without S3. 2/6 systolic murmur. ABDOMEN: Soft, nontender, nondistended, with normal bowel sounds. No hepatomegaly. EXTREMITIES: No clubbing, cyanosis or edema. NEURO/PSYCH: Alert and oriented to person, place and time. No obvious neurologic deficits. Mood and affect normal. LABORATORY DATA: Electrocardiogram shows paced rhythm, nonspecific intraventricular conduction delay. Creatinine is 6.79, hematocrit 39.5, troponin 0.05, 0.07, 0.06. IMPRESSION: 1. Recurrent chest discomfort, fairly atypical with focal sharp right-sided pain which sounds musculoskeletal. 2. Coronary artery disease, status post PCI, recently, and history of CABG. 3. Ischemic cardiomyopathy, EF 30%. 4. End-stage renal disease, on chronic hemodialysis. 5. Ventricular tachycardia, status post ICD. 6. Chronic systolic congestive heart failure. 7. Hypertension. 8. Hypercholesterolemia. RECOMMENDATIONS: Mr. Grimaldo presents with chest pain syndrome, it is fairly atypical overall, it is similar to what he had previously. At that time, he did have a ramus lesion, it was unclear he was having an ischemia. At that time, his troponins were not elevated, they are borderline now and flat. I do not think I would pursue further invasive evaluation unless he has recurrent pain and objective findings of ischemia either by further rising of troponin or changes in his EKG or unstable chest pain syndrome. I would continue his current medical therapy. We will recheck a troponin and an EKG in the morning. He could likely go home unless he has worsening typical symptoms. Thank you for this consultation. Please contact me if you have any further questions. WO/MODL Consultation Report [address] [place]. [address] NAME: ROBERTO GRIMALDO : 60 STATUS : ADM Fauzia PAT#: [id number] AGE: 56 ADM/REG DATE : 01/18/17 MR#: [id number] REPORT SERV DATE: 01/19/17 DICTATED BY: VALENTIN SINGH DATE: 01/19/17 REPORT STATUS : Draft TRANSCRIBED BY: CONSTANCE DATE: 01/19/17 Valentin Singh M.D., Ph.D, F.A.C.C. / [id number] CC: Julien Serra M.D.
--- NOTE | ~2017-01-18 | PREOPHP ---
PreOp History and Physical [facility] [address] [facility] [place]. [address] NAME: ROBERTO HUDSON : 60 STATUS : ADM Fauzia PAT#: [id number] AGE: 56 ADM/REG DATE : 01/18/17 MR#: [id number] REPORT SERV DATE: 01/19/17 DICTATED BY: KOBE LEE DATE: 01/19/17 REPORT STATUS : Draft TRANSCRIBED BY: CONSTANCE DATE: 01/19/17 TIME: 2:55 p.m. ASSESSMENT: 1. End-stage renal failure with angina. Severe episode of chest pain yesterday morning. Family brought him to the ER with borderline troponin. He is followed by the [facility]. Currently, being evaluated for further intervention. 2. End-stage renal failure secondary to polycystic kidney disease, on dialysis today. 3. Chronic systolic heart failure with reduced ejection fraction. He has an AICD. EF fraction noted to be 20% to 25%. 4. History of ventricular tachycardia. 5. Depression. 6. Gastroesophageal reflux disease. 7. Hypertension. PLAN: 1. Cardiology evaluating and assess need for further intervention. 2. Hemodialysis ultrafiltration. 3. Resume rest of his medications that he is currently on based on his home medication list. HISTORY OF PRESENT ILLNESS: He is a 56-year-old male, who dialyzes Thursday, Thursday, and Thursday at [facility], being on dialysis for six months due to polycystic kidney disease. He has significant atherosclerotic cardiovascular disease having undergone home bypass surgery in 2009. He has chronic systolic dysfunction. Has an AICD related to his reduced ejection fraction. Last cardiac catheterization noted in 2014 with percutaneous intervention to his ramus intermedius. He was making breakfast yesterday morning, when had an episode of severe retrosternal chest pain localized to his chest with diaphoresis and shortness of breath. Took a couple of nitroglycerines, laid down with some relief of his pain. However, his family called the EMS and was brought here to [facility], and his troponins are noted to be in the 0.05, 0.06, and 0.07 range, marginal and therefore, he was admitted to be evaluated further by Cardiology. Currently, he is chest pain-free. Denies any shortness of breath, cough, or pleuritic chest pain. PAST MEDICAL HISTORY: Includes the above atherosclerotic cardiovascular disease, AICD placement, bypass surgery. He also has an AV fistula in the left upper arm, polycystic kidney disease, hypertension, depression, and hyperlipidemia. SOCIAL HISTORY: Quit smoking in around 1999 and stopped drinking alcohol in 1993. ALLERGIES: NO KNOWN DRUG ALLERGIES. HOME MEDICATIONS: Include: Albuterol, amiodarone, aspirin, atorvastatin, Coreg, vitamin D, doxepin, Lofibra, Lasix, Apresoline, Isordil, levothyroxine, melatonin, Robaxin, Protonix, Klor-Con, Effient, and Lyrica. REVIEW OF SYSTEMS: PreOp History and Physical [address] [place]. [address] NAME: ROBERTO HUDSON : 60 STATUS : ADM Fauzia PAT#: [id number] AGE: 56 ADM/REG DATE : 01/18/17 MR#: [id number] REPORT SERV DATE: 01/19/17 DICTATED BY: KOBE LEE DATE: 01/19/17 REPORT STATUS : Draft TRANSCRIBED BY: CONSTANCE DATE: 01/19/17 System review is as per the [facility]. PHYSICAL EXAMINATION: GENERAL: He was seen on dialysis. Obese male, in no acute distress. VITAL SIGNS: Blood pressure is running 80s over 60s, heart rate in the 60s, afebrile. HEENT: Pupils are reacting to light. He is not pale or jaundiced. Oral mucosa is moist. No pharyngitis. NECK: Supple. No thyromegaly. Trachea is central. LUNGS: Air entry is equal bilaterally. CHEST: Clear to percussion and auscultation. CARDIAC: [place] is not displaced. S1, S2. No rub. He has a healed sternotomy scar. AICD, left upper chest. ABDOMEN: Nontender. No hepatosplenomegaly. Bowel sounds normal. He has no peripheral edema. He has a left upper arm AV fistula. NEURO: He is awake, alert, and oriented to time, place, and person. [place] depressed. Cranial nerves are intact. Peripheral pulses are present in the dorsalis pedis and posterior tibial. He has no gross neurological deficit. Muscle bulk and tone are appropriate for age and no acute arthritic findings described. LABORATORY DATA: Sodium 141, potassium 3.6, chloride 98, BUN 51, creatinine 6.79. Hemoglobin is 12.5, hematocrit is 39.5, white count is 7.2, platelet count 175,000. MG/MODL Kobe Lee M.D. / [id number] CC: Julien Serra M.D.
[2017-01-19 08:44] LABS: ALBUMIN 3.7 G/DL (3.5-5.0); CALCIUM, SERUM 8.6 MG/DL (8.5-10.4); CHLORIDE, SERUM 98 MMOL/L (96-112); CO2 (CARBON DIOXIDE) 28 MMOL/L (24-34); GLUCOSE, SERUM 79 MG/DL (60-99); POTASSIUM, SERUM 3.6 MMOL/L (3.5-5.3); SGOT(AST) 77 U/L (5-40); SGPT(ALT) 70 U/L (5-65); SODIUM, SERUM 141 MMOL/L (135-148); TOTAL BILIRUBIN 0.9 MG/DL (0-1.2)
[2017-01-19 08:45] LABS: A/G RATIO 0.9 (0.7-1.9); ALKALINE PHOSPHATASE 49 U/L (45-117); BUN (BLOOD UREA NITROGEN) 51 MG/DL (6-23); CREATININE 6.79 MG/DL (0.70-1.30); GFR AFRICAN AMERICAN 10 ML/MIN (>=60); GFR NON AFRICAN AMERICAN 8 ML/MIN (>=60); GLOBULIN 3.9 G/DL (2.5-4.1); TOTAL PROTEIN 7.6 G/DL (6.0-8.5); TROPONIN I 0.06 NG/ML (<0.05)
[2017-01-19 13:04] LABS: BASOPHILS ABSOLUTE 0.06 10/3/uL (0.0-0.16); EOSINOPHILS 1.6 %; EOSINOPHILS ABSOLUTE 0.09 10/3/uL (0.0-0.53); HEMATOCRIT 35.1 % (40.0-51.0); HEMOGLOBIN 11.7 g/dL (13.6-17.8); IMMATURE GRANULOCYTES 0.9 %; IMMATURE GRANULOCYTES ABSOLUTE 0.05 10/3/uL (0.0-0.11); LYMPHOCYTES 15.7 %; MANUAL DIFF NO %; MEAN CORPUS HGB CONC 33.3 g/dL (32.0-36.0); MEAN CORPUSCULAR HEMOGLOB 32.1 pg (26.0-34.0); MEAN CORPUSCULAR VOLUME 96.2 fL (80-100); MONOCYTES 12.4 %; MONOCYTES ABSOLUTE 0.71 10/3/uL (0.21-1.20); NEUTROPHILS 68.4 %; NEUTROPHILS ABSOLUTE 3.91 10/3/uL (2.02-8.40); PLATELET COUNT 167 10/3/uL (150-400); RBC DISTRIBUTION WIDTH 14.6 % (12.0-16.0); RED CELL COUNT 3.65 10/6/uL (4.7-6.1); WHITE BLOOD CELLS 5.7 10/3/uL (4.5-10.5)
[2017-01-20 04:42] LABS: BASOPHILS 1.4 %; BASOPHILS ABSOLUTE 0.11 10/3/uL (0.0-0.16); EOSINOPHILS 2.8 %; EOSINOPHILS ABSOLUTE 0.21 10/3/uL (0.0-0.53); HEMATOCRIT 38.5 % (40.0-51.0); HEMOGLOBIN 12.5 g/dL (13.6-17.8); IMMATURE GRANULOCYTES 0.9 %; IMMATURE GRANULOCYTES ABSOLUTE 0.07 10/3/uL (0.0-0.11); LYMPHOCYTES 19.3 %; LYMPHOCYTES ABSOLUTE 1.47 10/3/uL (0.67-4.30); MEAN CORPUS HGB CONC 32.5 g/dL (32.0-36.0); MEAN CORPUSCULAR HEMOGLOB 32.1 pg (26.0-34.0); MEAN CORPUSCULAR VOLUME 98.7 fL (80-100); MEAN PLATELET VOLUME 11.2 fL (9.2-13.0); MONOCYTES 12.9 %; MONOCYTES ABSOLUTE 0.98 10/3/uL (0.21-1.20); NEUTROPHILS 62.7 %; NEUTROPHILS ABSOLUTE 4.76 10/3/uL (2.02-8.40); PLATELET COUNT 188 10/3/uL (150-400); RBC DISTRIBUTION WIDTH 14.5 % (12.0-16.0); WHITE BLOOD CELLS 7.6 10/3/uL (4.5-10.5)
[2017-01-20 04:43] LABS: MANUAL DIFF NO %
[2017-01-20 04:55] LABS: ALBUMIN 3.5 G/DL (3.5-5.0); CALCIUM, SERUM 8.2 MG/DL (8.5-10.4); CHLORIDE, SERUM 100 MMOL/L (96-112); CO2 (CARBON DIOXIDE) 27 MMOL/L (24-34); GFR AFRICAN AMERICAN 10 ML/MIN (>=60); GFR NON AFRICAN AMERICAN 9 ML/MIN (>=60); PHOSPHORUS, SERUM 4.2 MG/DL (2.5-4.5); SODIUM, SERUM 138 MMOL/L (135-148)
[2017-01-20 04:57] LABS: BUN (BLOOD UREA NITROGEN) 39 MG/DL (6-23); GLUCOSE, SERUM 102 MG/DL (60-99); TROPONIN I 0.06 NG/ML (<0.05)
[2017-01-21 05:48] LABS: BASOPHILS 1.1 %; BASOPHILS ABSOLUTE 0.08 10/3/uL (0.0-0.16); EOSINOPHILS 2.5 %; EOSINOPHILS ABSOLUTE 0.18 10/3/uL (0.0-0.53); HEMATOCRIT 34.8 % (40.0-51.0); HEMOGLOBIN 11.6 g/dL (13.6-17.8); IMMATURE GRANULOCYTES 1.3 %; IMMATURE GRANULOCYTES ABSOLUTE 0.09 10/3/uL (0.0-0.11); LYMPHOCYTES 17.3 %; LYMPHOCYTES ABSOLUTE 1.22 10/3/uL (0.67-4.30); MEAN CORPUS HGB CONC 33.3 g/dL (32.0-36.0); MEAN CORPUSCULAR HEMOGLOB 31.9 pg (26.0-34.0); MEAN PLATELET VOLUME 11.1 fL (9.2-13.0); MONOCYTES 10.9 %; MONOCYTES ABSOLUTE 0.77 10/3/uL (0.21-1.20); NEUTROPHILS 66.9 %; NEUTROPHILS ABSOLUTE 4.72 10/3/uL (2.02-8.40); PLATELET COUNT 169 10/3/uL (150-400); RBC DISTRIBUTION WIDTH 14.6 % (12.0-16.0); RED CELL COUNT 3.64 10/6/uL (4.7-6.1); WHITE BLOOD CELLS 7.1 10/3/uL (4.5-10.5)
[2017-01-21 05:52] LABS: MANUAL DIFF NO %; MEAN CORPUSCULAR VOLUME 95.6 fL (80-100)
[2017-01-21 06:05] LABS: ALBUMIN 3.3 G/DL (3.5-5.0); BUN (BLOOD UREA NITROGEN) 60 MG/DL (6-23); CHLORIDE, SERUM 97 MMOL/L (96-112); CO2 (CARBON DIOXIDE) 24 MMOL/L (24-34); CREATININE 8.33 MG/DL (0.70-1.30); GFR AFRICAN AMERICAN 7 ML/MIN (>=60); GFR NON AFRICAN AMERICAN 6 ML/MIN (>=60); GLUCOSE, SERUM 94 MG/DL (60-99); PHOSPHORUS, SERUM 4.3 MG/DL (2.5-4.5); POTASSIUM, SERUM 3.8 MMOL/L (3.5-5.3); SODIUM, SERUM 138 MMOL/L (135-148)
[2017-01-21] MEDS ORDERED: COREG25 PO (19:40)
[2017-03-07] MEDS ORDERED: KLOR-CON M2020 MEQ PO (18:40)
[2017-03-07] MEDS ORDERED: TRILIPIX135 MG PO (18:41)
[2017-03-07] MEDS ORDERED: LIPITOR80 MG PO (18:42)
[2017-03-07] MEDS ORDERED: SINEQUAN 50 MG50 MG PO (18:43)
[2017-03-07] MEDS ORDERED: LEVOTHYROXIN200 MCG PO (18:43)
[2017-03-07] MEDS ORDERED: COREG25 PO (18:44)
[2017-03-07] MEDS ORDERED: CORDARONE PO (18:44)
[2017-03-07] MEDS ORDERED: EFFIENT10 PO (18:48)
[2017-03-07] MEDS ORDERED: ASAB PO (18:48)
[2017-03-07] MEDS ORDERED: LYRICA100 MG PO (18:48)
[2017-03-07] MEDS ORDERED: L20 PO (18:48)
[2017-03-07] MEDS ORDERED: MELATONIN5 M1 PO (18:49)
[2017-03-07] MEDS ORDERED: APRES25 PO (18:50)
[2017-03-07] MEDS ORDERED: FISH-EPA1000 MG PO (18:50)
[2017-03-07] MEDS ORDERED: METHOC750B PO (18:50)
[2017-03-07] MEDS ORDERED: ISORDIL20 PO (18:51)
[2017-03-07] MEDS ORDERED: VITAMIN D31000 UNIT PO (18:52)
[2017-03-07] MEDS ORDERED: PROTONIX PO (18:52)
[2017-07-22] MEDS ORDERED: NORCO1 TA2 PO (00:50)
[2017-07-22] MEDS ORDERED: LIPITOR80 MG PO (00:50)
[2017-07-22] MEDS ORDERED: Z100 PO (00:50)
[2017-07-22] MEDS ORDERED: L40 PO (00:51)
[2017-07-22] MEDS ORDERED: COREG25 PO (00:51)
[2017-07-22] MEDS ORDERED: LOFIBRA134 MG PO (00:51)
[2017-07-22] MEDS ORDERED: BUSPAR5 PO (00:51)
[2017-07-22] MEDS ORDERED: SYN.15 PO (00:52)
[2017-07-22] MEDS ORDERED: LYRICA150 MG PO (00:52)
[2017-07-22] MEDS ORDERED: APRES25 PO (00:52)
[2017-07-22] MEDS ORDERED: NITROSTAT0.4 MG SL (00:52)
[2017-07-22] MEDS ORDERED: EFFIENT10 PO (00:53)
[2017-07-22] MEDS ORDERED: PROTONIX PO (00:53)
[2017-07-22] MEDS ORDERED: RAN500 PO (00:53)
[2017-07-22] MEDS ORDERED: CORDARONE PO (00:54)
[2017-07-22] MEDS ORDERED: ASTELIN NAS (00:55)
[2017-07-22] MEDS ORDERED: TUMSROLL PO (00:56)
[2017-07-22] MEDS ORDERED: MELATONIN5 M1 PO (00:57)
[2017-07-22] MEDS ORDERED: FISH-EPA1000 MG PO (00:57)
[2017-07-24] MEDS ORDERED: PROAMAT5 PO (14:26)
[2017-07-24] MEDS ORDERED: ASA5GR PO (14:30)
== END 2017-01-21 20:53 | disposition home or self-care (01) | DRG 302 ==
LOC: CDU1 21:11
PROVIDERS: Internal Medicine Nephrology
PROC: 5A1D60Z (ICD-10-PCS; principal; 2017-01-19)
DX: I25.119 Atherosclerotic heart disease of native coronary artery with unspecified angina pectoris (principal); N18.6 End stage renal disease; I47.2 Ventricular tachycardia; I11.0 Hypertensive heart disease with heart failure; I95.9 Hypotension, unspecified; I50.22 Chronic systolic (congestive) heart failure; Q61.3 Polycystic kidney, unspecified; Z99.2 Dependence on renal dialysis; E78.00 Pure hypercholesterolemia, unspecified; I25.5 Ischemic cardiomyopathy; Z87.891 Personal history of nicotine dependence; F32.9 Major depressive disorder, single episode, unspecified; Z95.1 Presence of aortocoronary bypass graft; Z95.810 Presence of automatic (implantable) cardiac defibrillator; G47.33 Obstructive sleep apnea (adult) (pediatric); K21.9 Gastro-esophageal reflux disease without esophagitis; R07.89 Other chest pain
CPT/HCPCS: 71010; 80048; 80053; 80069; 82962; 83735; 84484; 85025; 85610; 85730; 93005; 99285; A9270-GY; G0257; J2405

== ENCOUNTER 2017-02-03 00:51 | Inpatient (IN) | payer BC ==
--- NOTE | ~2017-02-03 | HP ---
History And Physical [place] [id number] [facility] [place]. [address] NAME: ROBERTO HUDSON : 60 STATUS : ADM IN PAT#: [id number] AGE: 56 ADM/REG DATE : 02/03/17 MR#: [id number] REPORT SERV DATE: 02/03/17 DICTATED BY: GIO MALHOTRA JR DATE: 02/03/17 REPORT STATUS : Draft TRANSCRIBED BY: MODIsha DATE: 02/03/17 DATE OF ADMISSION: 02/03/2017 CHIEF COMPLAINT: Fever. HISTORY: 56-year-old male, dismissed from this facility on 01/28. Yesterday, he was attempting to move some soft drinks around and states that his knees "buckled" on him. Decision was made to be evaluated at [facility] Emergency Room. Identified to have a temperature of 102, and was transferred to this facility for admission, evaluation and management. He has no symptoms of an infectious disease. He had blood cultures done on 01/22 and reportedly grew Staph epi, and he has been receiving vancomycin for management up through 02/02. His left upper arm AV fistula is without evidence of infection. He denies cough, sore throat, subjective fever, physical chills, diaphoresis, nausea, vomiting, diarrhea but admits to a little bit of dysuria. He states the urine culture was collected at [facility] Emergency Room. That data is not presently available. He has been treated here with parenteral Zosyn. His T-max here is just over 99 degrees. PAST MEDICAL HISTORY: 1. ESRD, has been on dialysis for about seven months. 2. ASCVD. 3. Historical hypertension. 4. Chronic systolic congestive heart failure, not otherwise specified. 5. Elevated lipids, as listed by others. 6. Reported ischemic cardiomyopathy, not otherwise specified. 7. Remote tobacco habituation. 8. ADPKD. 9. Anemia of chronic kidney disease. 10.Hypothyroidism, on replacement. 11.Musculoskeletal disorder, not otherwise specified. 12.Cardiac dysrhythmias, treated with amiodarone. 13.Coronary artery bypass grafting, 2009. 14.Remote percutaneous intervention of the coronary arteries. 15.History of nonsustained ventricular tachycardia. 16.History of ICD implantation. 17.Remote reported EF 20% in December 2016. 18.Secondary hyperparathyroidism. ALLERGIES: NONE RECORDED. MEDICATIONS: Identified as albuterol, amiodarone 200 mg b.i.d., aspirin 81 mg a day, atorvastatin 80 mg a day, carvedilol 25 mg twice a day, vitamin D3 1000 units daily, doxepin 50 mg twice a day, fenofibrate 134 mg daily, furosemide 20 mg twice a day, hydralazine 25 mg twice a day, isosorbide 20 mg twice a day, levothyroxine 100 mcg daily, melatonin 5 mg at bedtime, methocarbamol 750 mg twice daily, fish oil daily, pantoprazole 40 mg daily, potassium 20 mEq daily, Effient 10 mg daily, Lyrica 150 mg twice a day. History And Physical [address] [address] NAME: ROBERTO HUDSON : 60 STATUS : ADM IN [facility]#: [id number] AGE: 56 ADM/REG DATE : 02/03/17 MR#: [id number] REPORT SERV DATE: 02/03/17 DICTATED BY: GIO MALHOTRA JR DATE: 02/03/17 REPORT STATUS : Draft TRANSCRIBED BY: CONSTANCE DATE: 02/03/17 FAMILY HISTORY: Notable for father dying at young age of coronary artery disease. SOCIAL HISTORY: Quit smoking in 1999. Remote alcohol use. . Disabled. Lives alone. REVIEW OF SYSTEMS: Not otherwise notable in a 10-point review of systems for head, ocular, oropharyngeal, neck, pulmonary, cardiac, GI, , musculoskeletal, neurological, integumentary, or psychiatric complaints. PHYSICAL EXAMINATION: GENERAL: Healthy-appearing white male, who awakens from sleep during the dialysis treatment. He is awake, alert, oriented, answers questions appropriately. He is in no acute distress. Male pattern baldness. HEENT: Cranial normocephalic and atraumatic. Pupils appear equal. He has no scleral icterus. There is no periorbital edema. Nose without epistaxis, or other discharge. Oral mucous membranes are moist. Facial symmetry is observed. NECK: Without venous distention at 30 degrees, and no carotid bruits heard. No lymphadenopathy, and the trachea is midline. Thyroid is not palpably enlarged. No supraclavicular adenopathy. LUNGS: Clear to auscultation, nonlabored respiration. No accessory muscle use. No cough. He is not on supplemental oxygen at this time. CARDIAC: Heart tones regular auscultation without murmur, gallop, or rub appreciated. PMI is not palpably displaced. ABDOMEN: Soft, nontender. Bowel sounds are present. Liver edges not palpably distended. Bruits not heard. No suprapubic tenderness. EXTREMITIES: With no peripheral edema. Integument is intact. Edema is not present. Cyanosis not observed. Peripherally, the pulses are symmetrical. NEUROLOGIC: Cognition and speech are normal. Moves all extremities, but gait is not presently tested as he is tethered to the dialysis machine. PSYCHIATRIC: Affect is normal. He is cooperative and interacts well with examiner. Laboratory data has been reviewed. [place] [address] [place] to a discharge value of 7000 last week when he left this facility. Electrolytes are satisfactory. Outside chest x-ray is not available for review. Likewise, culture data not available for review. ASSESSMENT: 1. Knees buckling at home, prompting emergency room visit. 2. Temperature documented at 102 elsewhere. 3. New leukocytosis. 4. Recent completion course of vancomycin. 5. Polycystic kidney disease without current symptomatology. PLAN: See the orders. History And Physical [address] [address] NAME: ROBERTO HUDSON : 60 STATUS : ADM IN [facility]#: [id number] AGE: 56 ADM/REG DATE : 02/03/17 MR#: [id number] REPORT SERV DATE: 02/03/17 DICTATED BY: GIO MALHOTRA JR DATE: 02/03/17 REPORT STATUS : Draft TRANSCRIBED BY: CONSTANCE DATE: 02/03/17 DF/CONSTANCE Gio Malhotra Jr, M.D. / [id number] CC: Gio Malhotra Jr, M.D.
[2017-02-03 02:20] LABS: BASOPHILS 0.3 %; BASOPHILS ABSOLUTE 0.04 10/3/uL (0.0-0.16); EOSINOPHILS ABSOLUTE 0.14 10/3/uL (0.0-0.53); HEMATOCRIT 31.4 % (40.0-51.0); HEMOGLOBIN 10.4 g/dL (13.6-17.8); IMMATURE GRANULOCYTES 0.3 %; IMMATURE GRANULOCYTES ABSOLUTE 0.05 10/3/uL (0.0-0.11); LYMPHOCYTES 9.5 %; LYMPHOCYTES ABSOLUTE 1.39 10/3/uL (0.67-4.30); MEAN CORPUS HGB CONC 33.1 g/dL (32.0-36.0); MEAN CORPUSCULAR HEMOGLOB 32.8 pg (26.0-34.0); MEAN PLATELET VOLUME 10.1 fL (9.2-13.0); MONOCYTES 8.5 %; MONOCYTES ABSOLUTE 1.25 10/3/uL (0.21-1.20); NEUTROPHILS 80.4 %; NEUTROPHILS ABSOLUTE 11.79 10/3/uL (2.02-8.40); PLATELET COUNT 181 10/3/uL (150-400); RBC DISTRIBUTION WIDTH 16.1 % (12.0-16.0); RED CELL COUNT 3.17 10/6/uL (4.7-6.1)
[2017-02-03] MEDS ORDERED: L20 PO (02:21)
[2017-02-03] MEDS ORDERED: APRES25 PO (02:21)
[2017-02-03] MEDS ORDERED: KDUR20 PO (02:22)
[2017-02-03 02:23] LABS: MANUAL DIFF NO %; MEAN CORPUSCULAR VOLUME 99.1 fL (80-100); WHITE BLOOD CELLS 14.7 10/3/uL (4.5-10.5)
[2017-02-03] MEDS ORDERED: MELATONIN5 M1 PO (02:23)
[2017-02-03 02:37] LABS: ALBUMIN 2.8 G/DL (3.5-5.0); CHLORIDE, SERUM 106 MMOL/L (96-112); CO2 (CARBON DIOXIDE) 28 MMOL/L (24-34); GLUCOSE, SERUM 91 MG/DL (60-99); SODIUM, SERUM 142 MMOL/L (135-148)
[2017-02-03 02:39] LABS: BUN (BLOOD UREA NITROGEN) 51 MG/DL (6-23); CK-MB 0.8 NG/ML; CPK 46 U/L (0-200); CREATININE 5.96 MG/DL (0.70-1.30); GFR AFRICAN AMERICAN 11 ML/MIN (>=60); GFR NON AFRICAN AMERICAN 10 ML/MIN (>=60); PHOSPHORUS, SERUM 2.8 MG/DL (2.5-4.5); POTASSIUM, SERUM 4.8 MMOL/L (3.5-5.3); TROPONIN I 0.11 NG/ML (<0.05)
[2017-02-03 10:25] LABS: CPK 128 U/L (0-200); TROPONIN I 0.07 NG/ML (<0.05)
[2017-02-03 18:18] LABS: CPK 132 U/L (0-200)
[2017-02-03 18:20] LABS: CK-MB 1.8 NG/ML
[2017-02-03 18:21] LABS: TROPONIN I 0.05 NG/ML (<0.05)
[2017-02-04 05:31] LABS: BASOPHILS 0.7 %; BASOPHILS ABSOLUTE 0.05 10/3/uL (0.0-0.16); EOSINOPHILS 2.7 %; EOSINOPHILS ABSOLUTE 0.19 10/3/uL (0.0-0.53); HEMATOCRIT 31.9 % (40.0-51.0); HEMOGLOBIN 10.4 g/dL (13.6-17.8); IMMATURE GRANULOCYTES 0.4 %; IMMATURE GRANULOCYTES ABSOLUTE 0.03 10/3/uL (0.0-0.11); LYMPHOCYTES 14.3 %; LYMPHOCYTES ABSOLUTE 1.02 10/3/uL (0.67-4.30); MEAN CORPUS HGB CONC 32.6 g/dL (32.0-36.0); MEAN CORPUSCULAR HEMOGLOB 32.1 pg (26.0-34.0); MEAN CORPUSCULAR VOLUME 98.5 fL (80-100); MEAN PLATELET VOLUME 10.2 fL (9.2-13.0); MONOCYTES 11.8 %; MONOCYTES ABSOLUTE 0.84 10/3/uL (0.21-1.20); NEUTROPHILS 70.1 %; NEUTROPHILS ABSOLUTE 4.99 10/3/uL (2.02-8.40); PLATELET COUNT 170 10/3/uL (150-400); RBC DISTRIBUTION WIDTH 16.2 % (12.0-16.0); RED CELL COUNT 3.24 10/6/uL (4.7-6.1)
[2017-02-04 05:37] LABS: WHITE BLOOD CELLS 7.1 10/3/uL (4.5-10.5)
[2017-02-04 05:38] LABS: MANUAL DIFF NO %
[2017-02-05 06:28] LABS: BASOPHILS 1.8 %; BASOPHILS ABSOLUTE 0.09 10/3/uL (0.0-0.16); EOSINOPHILS 3.6 %; EOSINOPHILS ABSOLUTE 0.18 10/3/uL (0.0-0.53); HEMATOCRIT 31.8 % (40.0-51.0); HEMOGLOBIN 10.3 g/dL (13.6-17.8); IMMATURE GRANULOCYTES 0.4 %; IMMATURE GRANULOCYTES ABSOLUTE 0.02 10/3/uL (0.0-0.11); LYMPHOCYTES 18.8 %; LYMPHOCYTES ABSOLUTE 0.93 10/3/uL (0.67-4.30); MEAN CORPUS HGB CONC 32.4 g/dL (32.0-36.0); MEAN CORPUSCULAR HEMOGLOB 31.9 pg (26.0-34.0); MEAN CORPUSCULAR VOLUME 98.5 fL (80-100); MEAN PLATELET VOLUME 10.5 fL (9.2-13.0); MONOCYTES 10.9 %; MONOCYTES ABSOLUTE 0.54 10/3/uL (0.21-1.20); NEUTROPHILS 64.5 %; NEUTROPHILS ABSOLUTE 3.18 10/3/uL (2.02-8.40); PLATELET COUNT 157 10/3/uL (150-400); RBC DISTRIBUTION WIDTH 15.9 % (12.0-16.0); RED CELL COUNT 3.23 10/6/uL (4.7-6.1); WHITE BLOOD CELLS 4.9 10/3/uL (4.5-10.5)
[2017-02-05 06:33] LABS: MANUAL DIFF NO %
[2017-02-05 06:39] LABS: ALBUMIN 2.7 G/DL (3.5-5.0); CALCIUM, SERUM 8.3 MG/DL (8.5-10.4); CHLORIDE, SERUM 107 MMOL/L (96-112); CO2 (CARBON DIOXIDE) 24 MMOL/L (24-34); GLUCOSE, SERUM 82 MG/DL (60-99); PHOSPHORUS, SERUM 3.3 MG/DL (2.5-4.5); SODIUM, SERUM 142 MMOL/L (135-148)
[2017-02-05 06:42] LABS: BUN (BLOOD UREA NITROGEN) 46 MG/DL (6-23); CREATININE 5.31 MG/DL (0.70-1.30); GFR AFRICAN AMERICAN 13 ML/MIN (>=60); GFR NON AFRICAN AMERICAN 11 ML/MIN (>=60)
[2017-02-05] MEDS ORDERED: AUGMENTIN (15:38)
[2017-03-07] MEDS ORDERED: KLOR-CON M2020 MEQ PO (18:40)
[2017-03-07] MEDS ORDERED: TRILIPIX135 MG PO (18:41)
[2017-03-07] MEDS ORDERED: LIPITOR80 MG PO (18:42)
[2017-03-07] MEDS ORDERED: LEVOTHYROXIN200 MCG PO (18:43)
[2017-03-07] MEDS ORDERED: SINEQUAN 50 MG50 MG PO (18:43)
[2017-03-07] MEDS ORDERED: CORDARONE PO (18:44)
[2017-03-07] MEDS ORDERED: COREG25 PO (18:44)
[2017-03-07] MEDS ORDERED: L20 PO (18:48)
[2017-03-07] MEDS ORDERED: EFFIENT10 PO (18:48)
[2017-03-07] MEDS ORDERED: LYRICA100 MG PO (18:48)
[2017-03-07] MEDS ORDERED: ASAB PO (18:48)
[2017-03-07] MEDS ORDERED: MELATONIN5 M1 PO (18:49)
[2017-03-07] MEDS ORDERED: FISH-EPA1000 MG PO (18:50)
[2017-03-07] MEDS ORDERED: APRES25 PO (18:50)
[2017-03-07] MEDS ORDERED: METHOC750B PO (18:50)
[2017-03-07] MEDS ORDERED: ISORDIL20 PO (18:51)
[2017-03-07] MEDS ORDERED: PROTONIX PO (18:52)
[2017-03-07] MEDS ORDERED: VITAMIN D31000 UNIT PO (18:52)
[2017-07-22] MEDS ORDERED: LIPITOR80 MG PO (00:50)
[2017-07-22] MEDS ORDERED: NORCO1 TA2 PO (00:50)
[2017-07-22] MEDS ORDERED: Z100 PO (00:50)
[2017-07-22] MEDS ORDERED: COREG25 PO (00:51)
[2017-07-22] MEDS ORDERED: LOFIBRA134 MG PO (00:51)
[2017-07-22] MEDS ORDERED: L40 PO (00:51)
[2017-07-22] MEDS ORDERED: BUSPAR5 PO (00:51)
[2017-07-22] MEDS ORDERED: APRES25 PO (00:52)
[2017-07-22] MEDS ORDERED: SYN.15 PO (00:52)
[2017-07-22] MEDS ORDERED: NITROSTAT0.4 MG SL (00:52)
[2017-07-22] MEDS ORDERED: LYRICA150 MG PO (00:52)
[2017-07-22] MEDS ORDERED: RAN500 PO (00:53)
[2017-07-22] MEDS ORDERED: EFFIENT10 PO (00:53)
[2017-07-22] MEDS ORDERED: PROTONIX PO (00:53)
[2017-07-22] MEDS ORDERED: CORDARONE PO (00:54)
[2017-07-22] MEDS ORDERED: ASTELIN NAS (00:55)
[2017-07-22] MEDS ORDERED: TUMSROLL PO (00:56)
[2017-07-22] MEDS ORDERED: MELATONIN5 M1 PO (00:57)
[2017-07-22] MEDS ORDERED: FISH-EPA1000 MG PO (00:57)
[2017-07-24] MEDS ORDERED: PROAMAT5 PO (14:26)
[2017-07-24] MEDS ORDERED: ASA5GR PO (14:30)
== END 2017-02-05 18:52 | disposition home or self-care (01) | DRG 291 ==
LOC: CCU 00:51 → 1SO 13:48
PROVIDERS: Internal Medicine Nephrology; Registered Nurse
PROC: 5A1D60Z (ICD-10-PCS; principal; 2017-02-03)
DX: I13.2 Hypertensive heart and chronic kidney disease with heart failure and with stage 5 chronic kidney disease, or end stage renal disease (principal); N18.6 End stage renal disease; I47.2 Ventricular tachycardia; N25.81 Secondary hyperparathyroidism of renal origin; I50.22 Chronic systolic (congestive) heart failure; Z95.1 Presence of aortocoronary bypass graft; I25.5 Ischemic cardiomyopathy; E03.9 Hypothyroidism, unspecified; I25.10 Atherosclerotic heart disease of native coronary artery without angina pectoris; N28.1 Cyst of kidney, acquired; Z99.2 Dependence on renal dialysis; Z79.01 Long term (current) use of anticoagulants; Z79.82 Long term (current) use of aspirin; Z79.899 Other long term (current) drug therapy; Z87.891 Personal history of nicotine dependence; Z95.810 Presence of automatic (implantable) cardiac defibrillator
CPT/HCPCS: 71020; 80069; 82550; 82553; 83735; 84484; 85025; 87641; 97161-GP; A9270-GY; G0257; G0378; J2543

== ENCOUNTER 2017-03-07 19:09 | Inpatient (IN) | payer BC, MEDICARE ==
--- NOTE | ~2017-03-07 | HP ---
History And Physical [place] [address] [place]. [address] NAME: ROBERTO HUDSON : 60 STATUS : ADM Fauzia PAT#: [id number] AGE: 56 ADM/REG DATE : 03/07/17 MR#: [id number] REPORT SERV DATE: 03/08/17 DICTATED BY: HERMAN CALLES DATE: 03/07/17 REPORT STATUS : Draft TRANSCRIBED BY: MODIsha DATE: 03/07/17 DATE OF ADMISSION: 03/07/2017 NEPHROLOGY CONSULT ADMISSION. CHIEF COMPLAINT: Chest pain, nausea. HISTORY OF PRESENT ILLNESS: The patient is a 56-year-old white male with significant past medical history of end-stage renal disease secondary to adult polycystic kidney disease, CABG, coronary artery stents, systolic CHF with ejection fraction of 30%, presented with chest pain. The patient went to his hemodialysis which he completed today. However, at the end of his hemodialysis, he did develop 9 out of 10 left-sided chest pain. He noted also sweats. Otherwise, he did not have any radiation of pain, increasing shortness of breath. Prior to going to dialysis, he has noted a history of nausea for 24 to 48 hours. He had some small amount of diarrhea. Otherwise, no episode of vomiting or severe abdominal pain. He noted when he presented to dialysis with his history of recent nausea and poor p.o. intake he was under his dry weight. At the time of this dictation, I do not know his hemodynamics at the end of dialysis such as if he was tachycardic or hypertensive. Ambulance was called, and he was transferred. En route, he received several doses of nitroglycerin sublingual which relieved some of his pain. He was still having chest pain on arrival in the ER. He received some more nitroglycerin sublingual and morphine. Initial troponin is unremarkable. Patient is asymptomatic. He had EKG that was reviewed. The patient has been hospitalized several times in the last 3 months for chest pain. He underwent a cardiac catheterization on 01/07/[address] Elizabeth. An echocardiogram was completed at that time which showed LV ejection fraction of 30%. It was also noted to have RV enlargement with mild decreased RV function. In addition, he had some mild to moderate AR, MR, and TR. There were no significant changes in his echo compared to June 2016. Cardiology recommended medical management. The patient re-presented to the hospital later in December 2016, once again seen by Cardiology. He was ruled out and once again they recommended medical management. PAST MEDICAL HISTORY/PAST SURGICAL HISTORY: 1. End-stage renal disease secondary to adult polycystic kidney disease. 2. Chronic systolic CHF with ejection fraction of 30%. Also noted to have RV enlargement and decreased RV function (mild). 3. CABG with stents. 4. Hypothyroidism. 5. Anemia of chronic kidney disease. 6. Cardiac dysrhythmias. The patient on amiodarone. 7. History of nonsustained ventricular tachycardia. 8. History of AICD. 9. Secondary hyperparathyroidism. ALLERGIES: NO KNOWN DRUG ALLERGIES. History And Physical [address] [address] NAME: ROBERTO HUDSON : 60 STATUS : ADM Fauzia PAT#: [id number] AGE: 56 ADM/REG DATE : 03/07/17 MR#: [id number] REPORT SERV DATE: 03/08/17 DICTATED BY: HERMAN CALLES DATE: 03/07/17 REPORT STATUS : Draft TRANSCRIBED BY: CONSTANCE DATE: 03/07/17 MEDICATIONS: Include amiodarone, aspirin, Lipitor, Coreg, vitamin D3, doxepin, fenofibric acid, Lasix 20 mg a day, hydralazine 25 mg a day, ISDN 20 mg a day, Synthroid, levothyroxine 200 mcg, melatonin, Robaxin, fish oil, Protonix, potassium chloride 20 mEq p.o. b.i.d., Effient, Lyrica. REVIEW OF SYSTEMS: Complete review of systems is negative, otherwise stated in the HPI. PHYSICAL EXAMINATION: VITAL SIGNS: In the emergency department, he was noted to have systolic blood pressure 116 and diastolic blood pressure 63, heart rate was 74, and temperature was 97.8. GENERAL: He is obese, no apparent distress. SKIN: No rash. Warm to touch. NEURO: He is alert and oriented x3. Moves all 4 extremities. EXTREMITIES: No peripheral edema. VASCULAR: +2 radial pulses bilaterally and the radial arteries and carotid arteries. CARDIOVASCULAR: Regular rate and rhythm. No gallops, rubs, or murmurs. RESPIRATORY: Clear to auscultation bilaterally. ABDOMEN: Soft, nontender, and nondistended. Positive bowel sounds. EXTREMITIES: No peripheral edema. LABS: Sodium is 135, potassium 3.0, chloride is 98, CO2 is 32, BUN is 26, creatinine is 3.47, glucose is 98, magnesium is 1.9. Troponin 0.04. White blood cell count is 11.1, hemoglobin is 12.4, and platelets are 184. Chest x-ray, no infiltrates or effusions. ASSESSMENT: 1. Chest pain with past medical history of coronary artery bypass graft and percutaneous coronary interventions. The patient has had a previous cardiac catheterization in December of 2016. 2. Chronic systolic congestive heart failure. Ejection fraction 30% based on echo completed in December 2016 with no changes from June 2016. 3. History of nonsustained ventricular tachycardia. 4. Automatic implantable cardioverter-defibrillator. 5. Hypokalemia. 6. Leukocytosis. 7. Anemia of chronic kidney disease. 8. Nausea x24-48 hours with mild diarrhea. Medications? Cardiac? 9. End-stage renal disease, secondary to adult polycystic kidney disease. PLAN: 1. Serial cardiac markers. Telemetry. EKG in the morning. 2. Home and p.r.n. medications. 3. Reevaluate. Further evaluation by Cardiology. The patient has been seen by Cardiology in December with cardiac catheterization, echocardiogram completed. 4. Monitor temperature curve along with leukocytosis. History And Physical [address] [address] NAME: ROBERTO HUDSON : 60 STATUS : ADM Fauzia PAT#: [id number] AGE: 56 ADM/REG DATE : 03/07/17 MR#: [id number] REPORT SERV DATE: 03/08/17 DICTATED BY: HERMAN CALLES. DATE: 03/07/17 REPORT STATUS : Draft TRANSCRIBED BY: MODL DATE: 03/07/17 5. Monitor symptoms of nausea. 6. Further evaluation and management and disposition, to be re-evaluated by primary team in the morning. SGG/MODL Herman Calles M.D. / [id number] CC: Lou Hi, [employer]
--- NOTE | ~2017-03-07 | CN ---
Consultation Report [facility] [address] [place]. [address] NAME: ROBERTO HUDSON : 60 STATUS : ADM Fauzia PAT#: [id number] AGE: 56 ADM/REG DATE : 03/07/17 MR#: [id number] REPORT SERV DATE: 03/08/17 DICTATED BY: ABIDA WHITEHEAD DATE: 03/08/17 REPORT STATUS : Draft TRANSCRIBED BY: MODL DATE: 03/08/17 CARDIOLOGY CONSULTATION NOTE DATE OF CONSULTATION: HISTORY OF PRESENT ILLNESS: This 56-year-old white male, nonsmoker, with end-stage renal disease, on three times a week hemodialysis, was undergoing his usual dialysis session yesterday when he developed some chest discomfort. His troponin is only 0.04 and 0.05 compatible with his kidney disease and possibly demand ischemia; his renal disease is primarily a polycystic kidney disease. This gentleman has a complex cardiac history including previous coronary bypass grafting and intracoronary stenting with ischemic cardiomyopathy and an ejection fraction of only in the 30% range. He has an AICD placed. He has a history of hypertension, but not known to be diabetic. He enjoys hunting deer and is apparently having no severe shortness of breath while walking. He has no definite exertional chest discomfort, but did have the chest pain yesterday on dialysis as described. Echocardiogram has shown [id number] aortic regurgitation and mitral regurgitation. He has been on medical management, but apparently underwent some stenting with Dr. Elizabeth within the last two to three months to his recollection. ALLERGIES: HE HAS NO KNOWN ALLERGIES TO MEDICATIONS. MEDICATIONS: At home have included Coreg, aspirin, amiodarone, fenofibric acid, doxepin, hydralazine, Lasix, Synthroid, melatonin, Robaxin, Effient, and potassium. FAMILY HISTORY: Positive for heart disease. Besides his AICD, bypass grafting, and stenting, he has undergone herniorrhaphy as his complete surgical profile. REVIEW OF SYSTEMS: Otherwise all negative this afternoon. He has no symptoms of congestive heart failure or chest pain at this time. EKG shows sinus rhythm with normal axis and nonspecific T-wave flattening. There is an intraventricular conduction delay and he has intermittent pacing from his defibrillator. BUN 40, creatinine 4.8. Potassium being treated with electrolyte profile, was a bit depressed on admission and now 3.3. B-type natriuretic peptide is 234. INR is 1.1. White blood cell count 8.4 thousand, hematocrit 34%, and platelet count 176,000. PHYSICAL EXAMINATION: VITAL SIGNS: Blood pressure is 100/50. HEENT: Head is normocephalic. Eyes, PERRLA. Nose has no epistaxis. SKIN: Clear of ulceration. NECK: Supple. CHEST: Clear with good breath sounds. Absent rales, rhonchi, or wheeze. Consultation Report [address] [place]. [address] NAME: ROBERTO HUDSON : 60 STATUS : ADM Fauzia PAT#: [id number] AGE: 56 ADM/REG DATE : 03/07/17 MR#: [id number] REPORT SERV DATE: 03/08/17 DICTATED BY: ABIDA WHITEHEAD DATE: 03/08/17 REPORT STATUS : Draft TRANSCRIBED BY: CONSTANCE DATE: 03/08/17 HEART: Has regular rhythm. Normal S1, S2. Grade 1/6 systolic murmur heard at the base. I hear no definite diastolic murmurs. ABDOMEN: Obese and nontender. EXTREMITIES: Has no clubbing, edema, or cyanosis. NEUROLOGIC: Intact. He is oriented to time, place, and person. CLINICAL IMPRESSION: 1. End-stage renal disease, on chronic hemodialysis; secondary to polycystic kidney disease. 2. Ischemic cardiomyopathy with ejection fraction of only 30%. 3. Status post coronary artery bypass grafting and intracoronary stenting. 4. History of AICD placement. 5. Anemia of chronic kidney disease. 6. Secondary hyperparathyroidism, per chart. 7. Chest pain-no evidence for myocardial infarction; mild chronic troponin elevation probably due to demand ischemia/chronic kidney disease. RECOMMENDATIONS: 1. We will check a nuclear medicine stress test with Lexiscan in the morning. 2. I will notify Dr. Elizabeth of the patient's admission tomorrow. RB/CONSTANCE Abida Whitehead M.D. / [id number] CC: Lou Hi Yamileth, [employer] TECHNICIAN
--- NOTE | ~2017-03-07 | DS ---
Discharge Summary [facility] [address] [place]. [address] NAME: ROBERTO HUDSON : 60 STATUS : DIS IN PAT#: [id number] AGE: 56 ADM/REG DATE : 03/07/17 MR#: [id number] REPORT SERV DATE: 03/25/17 DICTATED BY: ARSALAN TRIVEDI DATE: 03/24/17 REPORT STATUS : Draft TRANSCRIBED BY: CONSTANCE DATE: 03/24/17 Data Collection from hospitalization DISCHARGE DIAGNOSES: 1. Angina - Unstable. 2. Coronary artery disease. 3. Ischemic cardiomyopathy - Ejection fraction 30% - AICD. 4. Hypotension. 5. Escherichia coli bacteremia/urinary tract infection/sepsis. 6. Anemia. 7. End-stage renal disease secondary to adult polycystic kidney disease. 8. Chronic systolic congestive heart failure. 9. Hypothyroidism. 10.Anemia of chronic kidney disease. 11.Cardiac dysrhythmia. 12.History of nonsustained ventricular tachycardia. 13.Secondary hyperparathyroidism. CONSULTATIONS: Mustapha Whitehead M.D. PROCEDURES PERFORMED: Myocardial perfusion imaging study, 03/09/2017. DISCHARGE MEDICATIONS: Cordarone 200 mg twice a day, aspirin 81 mg daily, Lipitor 80 mg at bedtime, Coreg 25 mg twice a day, vitamin D3 3000 units daily, Sinequan 50 mg twice a day, TriLipix 135 mg daily, Lasix 20 mg daily, levothyroxine 200 mcg daily, melatonin 5 mg at bedtime, Robaxin 750 mg twice a day as needed, NitroQuick 0.3 mg sublingually as needed, fish oil 4000 mg daily, Protonix 40 mg daily, Klor-Con 20 mEq twice a day, Effient 10 mg daily, Lyrica 100 mg twice a day, Ranexa 500 mg twice a day. CONDITION ON DISCHARGE: Stable. DISPOSITION: The patient was discharged home on a renal diet with activities as instructed. He would follow up with Dr. Roberto Elizabeth 04/14/2017. He would follow up in the Dialysis Clinic the day following discharge. HOSPITAL COURSE: This is a 56-year-old man who has a significant past medical history of end stage renal disease secondary to adult polycystic kidney disease. He has undergone a coronary artery bypass and coronary artery stent. He has systolic congestive heart failure with ejection fraction of 30%. The patient presented with chest pain. He went to his hemodialysis therapy, which he completed on the day of this admission, however, at the end of his hemodialysis he did develop 9/10 left-sided chest pain. He also noticed sweats, otherwise, he did not have any radiation of pain or increasing shortness of breath. Prior to going to dialysis, he had a history of nausea for 24 to 48 hours. He did have a small amount of diarrhea, otherwise, he had no episodes of vomiting or severe abdominal pain. He noted that when he presented to dialysis with his history of recent nausea and poor oral intake, he was under his dry weight. At the time of this dictation, we did not know his hemodynamics at the end of dialysis such as that he was tachycardic or hypertensive. An ambulance was called and he was transferred. In route, he received several doses of Discharge Summary [address] [address] NAME: ROBERTO HUDSON : 60 STATUS : DIS IN PAT#: [id number] AGE: 56 ADM/REG DATE : 03/07/17 MR#: [id number] REPORT SERV DATE: 03/25/17 DICTATED BY: ARSALAN TRIVEDI DATE: 03/24/17 REPORT STATUS : Draft TRANSCRIBED BY: CONSTANCE DATE: 03/24/17 nitroglycerin sublingually, which relieved some of his pain. He was still having chest pain on arrival in the emergency room, he received more nitroglycerin sublingual and morphine. Initial troponin was unremarkable. The patient was asymptomatic. His EKG was reviewed. He had been hospitalized several times in the past three months for chest pain. He had undergone a cardiac catheterization on 01/07/2017. An echocardiogram was completed at that time, which showed left ventricular ejection fraction of 30%. It was also noted to have right ventricular enlargement with mild decreased right ventricular function. In addition, he has some mild to moderate aortic regurgitation, mitral regurgitation, and tricuspid regurgitation. There were no significant changes in his echo compared to June 2016. Cardiology had recommended medical management. He had re-presented to the hospital later in December 2016 and was once again seen by Cardiology. He was ruled out and once again they recommended medical management. He was admitted to the hospital at this time for further evaluation and treatment. Upon admission, chest x-ray showed no infiltrates or effusions. Serial cardiac markers were going to be checked. He was placed on telemetry and EKG was going to be performed. The following day, he was seen by Dr. Mustapha Whitehead. Echocardiogram had shown mild-to- moderate aortic regurgitation and mitral regurgitation. He had been on medical management. Apparently, he underwent some stenting with Dr. Elizabeth within the past two to three months to his recollection. Nuclear medicine stress test was going to be performed with [employer]. On 03/08/2017, his cardiac enzymes were negative thus far. He has no chest pain at this time. He had undergone an echocardiogram on the 03/09/2017. Telemetry had revealed occasional nonsustained ventricular tachycardia. He was currently in a normal sinus rhythm. Aspirin and atorvastatin were continued. Amiodarone was continued. He had no chest pain or shortness of breath. A myocardial perfusion imaging study was performed. This demonstrated daria-infarct inferior and inferolateral ischemia. Post infusion left ventricular ejection fraction was 30%. We would consider echocardiogram for better assessment of ejection fraction. On 03/10/2017, he had no specific complaints. He had had no chest pain since admission. He was going to undergo hemodialysis. The patient had total occlusion of the right coronary artery. Catheterization was not recommended at this territory as nonrevascularizable. Ranexa was started. On 03/11/2017, he had no chest pain or shortness of breath. He did have some nausea at time. He still had some dyspnea. Blood cultures were negative. Urine cultures had been obtained. He was tolerating Ranexa. The patient was hypotensive. We would consider decreasing his carvedilol if the hypotension did not improve with antibiotics. He was grossly euvolemic. The next day, hemodialysis therapy was performed. He had, had no chest pain overnight or that morning. He had no shortness of breath. Discharge planning was performed. He did have a fever. He had been found to have E. coli bacteremia/ESBL. On 03/13/2017, discharge instructions were given. Due to his improved and stable condition, he was discharged home with the above-stated instructions. Information collected by: Janet Galan I submit the above information as my discharge summary. Discharge Summary [address] [place]. [address] NAME: ROBERTO HUDSON : 60 STATUS : DIS IN PAT#: [id number] AGE: 56 ADM/REG DATE : 03/07/17 MR#: [id number] REPORT SERV DATE: 03/25/17 DICTATED BY: ARSALAN TRIVEDI DATE: 03/24/17 REPORT STATUS : Draft TRANSCRIBED BY: CONSTANCE DATE: 03/24/17 TG/CONSTANCE Arsalan Trivedi M.D. / [id number] CC: Lou Hi NP Robert Berglund, M.D.
[2017-03-07 17:58] LABS: BASOPHILS 0.2 %; BASOPHILS ABSOLUTE 0.02 10/3/uL (0.0-0.16); EOSINOPHILS 0.2 %; EOSINOPHILS ABSOLUTE 0.02 10/3/uL (0.0-0.53); IMMATURE GRANULOCYTES 0.2 %; IMMATURE GRANULOCYTES ABSOLUTE 0.02 10/3/uL (0.0-0.11); LYMPHOCYTES 6.7 %; LYMPHOCYTES ABSOLUTE 0.74 10/3/uL (0.67-4.30); MEAN CORPUS HGB CONC 33.2 g/dL (32.0-36.0); MEAN CORPUSCULAR HEMOGLOB 32.1 pg (26.0-34.0); MEAN CORPUSCULAR VOLUME 96.6 fL (80-100); MEAN PLATELET VOLUME 11.6 fL (9.2-13.0); MONOCYTES 9.1 %; MONOCYTES ABSOLUTE 1.01 10/3/uL (0.21-1.20); NEUTROPHILS 83.6 %; NEUTROPHILS ABSOLUTE 9.24 10/3/uL (2.02-8.40); PLATELET COUNT 184 10/3/uL (150-400); RBC DISTRIBUTION WIDTH 15.6 % (12.0-16.0); RED CELL COUNT 3.86 10/6/uL (4.7-6.1)
[2017-03-07 18:00] LABS: ER CBC TAT 0 Hrs 05 Mins; HEMATOCRIT 37.3 % (40.0-51.0); HEMOGLOBIN 12.4 g/dL (13.6-17.8); MANUAL DIFF NO %; WHITE BLOOD CELLS 11.1 10/3/uL (4.5-10.5)
[2017-03-07 18:06] LABS: INTERNATIONAL NORMAL RATI 1.1 UNITS (-); PARTIAL THROMBO TIME 34.8 SEC (22.5-37.2); PROTIME (NOT ORD) 14.2 SEC (12.0-14.5)
[2017-03-07 18:16] LABS: CALCIUM, SERUM 8.5 MG/DL (8.5-10.4); CHEST PAIN PROFILE TAT 0 Hrs 21 Mins; CHLORIDE, SERUM 98 MMOL/L (96-112); GFR AFRICAN AMERICAN 22 ML/MIN (>=60); GFR NON AFRICAN AMERICAN 19 ML/MIN (>=60); GLUCOSE, SERUM 98 MG/DL (60-99); TROPONIN I 0.04 NG/ML (<0.05)
[2017-03-07 18:17] LABS: BUN (BLOOD UREA NITROGEN) 26 MG/DL (6-23); CO2 (CARBON DIOXIDE) 32 MMOL/L (24-34); SODIUM, SERUM 135 MMOL/L (135-148)
[2017-03-07 18:18] LABS: CREATININE 3.47 MG/DL (0.70-1.30)
[~2017-03-07 19:09] MED LIST changes: +AUGMENTIN; +KDUR20 PO; +TRILIPIX135 MG PO
[2017-03-08 06:54] LABS: BASOPHILS 0.1 %; BASOPHILS ABSOLUTE 0.01 10/3/uL (0.0-0.16); EOSINOPHILS 0.7 %; EOSINOPHILS ABSOLUTE 0.06 10/3/uL (0.0-0.53); HEMATOCRIT 33.6 % (40.0-51.0); HEMOGLOBIN 10.9 g/dL (13.6-17.8); IMMATURE GRANULOCYTES 0.4 %; IMMATURE GRANULOCYTES ABSOLUTE 0.03 10/3/uL (0.0-0.11); LYMPHOCYTES 5.3 %; LYMPHOCYTES ABSOLUTE 0.45 10/3/uL (0.67-4.30); MEAN CORPUS HGB CONC 32.4 g/dL (32.0-36.0); MEAN CORPUSCULAR HEMOGLOB 31.5 pg (26.0-34.0); MEAN CORPUSCULAR VOLUME 97.1 fL (80-100); MONOCYTES 12.1 %; MONOCYTES ABSOLUTE 1.02 10/3/uL (0.21-1.20); NEUTROPHILS 81.4 %; NEUTROPHILS ABSOLUTE 6.85 10/3/uL (2.02-8.40); PLATELET COUNT 176 10/3/uL (150-400); RBC DISTRIBUTION WIDTH 15.6 % (12.0-16.0); RED CELL COUNT 3.46 10/6/uL (4.7-6.1); WHITE BLOOD CELLS 8.4 10/3/uL (4.5-10.5)
[2017-03-08 06:55] LABS: MANUAL DIFF NO %
[2017-03-08 07:10] LABS: A/G RATIO 0.7 (0.7-1.9); ALBUMIN 2.6 G/DL (3.5-5.0); CALCIUM, SERUM 7.8 MG/DL (8.5-10.4); CHLORIDE, SERUM 101 MMOL/L (96-112); CO2 (CARBON DIOXIDE) 29 MMOL/L (24-34); GLOBULIN 3.8 G/DL (2.5-4.1); GLUCOSE, SERUM 81 MG/DL (60-99); POTASSIUM, SERUM 3.3 MMOL/L (3.5-5.3); SGOT(AST) 30 U/L (5-40); SGPT(ALT) 18 U/L (5-65); SODIUM, SERUM 138 MMOL/L (135-148); TOTAL PROTEIN 6.4 G/DL (6.0-8.5)
[2017-03-08 07:11] LABS: ALKALINE PHOSPHATASE 38 U/L (45-117); BUN (BLOOD UREA NITROGEN) 40 MG/DL (6-23); CK-MB 0.9 NG/ML; CPK 108 U/L (0-200); GFR AFRICAN AMERICAN 15 ML/MIN (>=60); GFR NON AFRICAN AMERICAN 13 ML/MIN (>=60); PHOSPHORUS, SERUM 4.6 MG/DL (2.5-4.5); TOTAL BILIRUBIN 0.4 MG/DL (0-1.2); TROPONIN I 0.05 NG/ML (<0.05)
[2017-03-08 13:08] LABS: CK-MB 0.6 NG/ML; CPK 81 U/L (0-200); TROPONIN I 0.03 NG/ML (<0.05)
[2017-03-08 20:31] LABS: CPK 74 U/L (0-200); TROPONIN I 0.04 NG/ML (<0.05)
[2017-03-08 20:33] LABS: CK-MB 0.6 NG/ML
[2017-03-09 05:57] LABS: BASOPHILS 0.2 %; BASOPHILS ABSOLUTE 0.02 10/3/uL (0.0-0.16); EOSINOPHILS 0.3 %; EOSINOPHILS ABSOLUTE 0.03 10/3/uL (0.0-0.53); HEMOGLOBIN 11.1 g/dL (13.6-17.8); IMMATURE GRANULOCYTES 0.4 %; IMMATURE GRANULOCYTES ABSOLUTE 0.04 10/3/uL (0.0-0.11); LYMPHOCYTES 8.3 %; LYMPHOCYTES ABSOLUTE 0.84 10/3/uL (0.67-4.30); MEAN CORPUS HGB CONC 32.6 g/dL (32.0-36.0); MEAN CORPUSCULAR HEMOGLOB 31.6 pg (26.0-34.0); MEAN CORPUSCULAR VOLUME 96.9 fL (80-100); MEAN PLATELET VOLUME 11.2 fL (9.2-13.0); MONOCYTES 8.7 %; MONOCYTES ABSOLUTE 0.89 10/3/uL (0.21-1.20); NEUTROPHILS 82.1 %; NEUTROPHILS ABSOLUTE 8.36 10/3/uL (2.02-8.40); PLATELET COUNT 175 10/3/uL (150-400); RBC DISTRIBUTION WIDTH 15.7 % (12.0-16.0); RED CELL COUNT 3.51 10/6/uL (4.7-6.1); WHITE BLOOD CELLS 10.2 10/3/uL (4.5-10.5)
[2017-03-09 05:59] LABS: MANUAL DIFF NO %
[2017-03-09 06:09] LABS: ALBUMIN 2.5 G/DL (3.5-5.0); CALCIUM, SERUM 8.2 MG/DL (8.5-10.4); CHLORIDE, SERUM 102 MMOL/L (96-112); POTASSIUM, SERUM 3.3 MMOL/L (3.5-5.3); SODIUM, SERUM 138 MMOL/L (135-148)
[2017-03-09 06:10] LABS: BUN (BLOOD UREA NITROGEN) 71 MG/DL (6-23); CO2 (CARBON DIOXIDE) 24 MMOL/L (24-34); CREATININE 6.59 MG/DL (0.70-1.30); GFR AFRICAN AMERICAN 10 ML/MIN (>=60); GFR NON AFRICAN AMERICAN 9 ML/MIN (>=60); GLUCOSE, SERUM 104 MG/DL (60-99); PHOSPHORUS, SERUM 3.1 MG/DL (2.5-4.5)
[2017-03-10 13:37] LABS: BASOPHILS 0.2 %; BASOPHILS ABSOLUTE 0.02 10/3/uL (0.0-0.16); EOSINOPHILS 0.4 %; EOSINOPHILS ABSOLUTE 0.05 10/3/uL (0.0-0.53); HEMATOCRIT 30.9 % (40.0-51.0); HEMOGLOBIN 10.4 g/dL (13.6-17.8); IMMATURE GRANULOCYTES 0.5 %; IMMATURE GRANULOCYTES ABSOLUTE 0.06 10/3/uL (0.0-0.11); LYMPHOCYTES 5.4 %; LYMPHOCYTES ABSOLUTE 0.69 10/3/uL (0.67-4.30); MEAN CORPUS HGB CONC 33.7 g/dL (32.0-36.0); MEAN CORPUSCULAR HEMOGLOB 31.9 pg (26.0-34.0); MEAN CORPUSCULAR VOLUME 94.8 fL (80-100); MEAN PLATELET VOLUME 11.1 fL (9.2-13.0); MONOCYTES 7.3 %; MONOCYTES ABSOLUTE 0.94 10/3/uL (0.21-1.20); NEUTROPHILS 86.2 %; NEUTROPHILS ABSOLUTE 11.06 10/3/uL (2.02-8.40); PLATELET COUNT 195 10/3/uL (150-400); RBC DISTRIBUTION WIDTH 15.4 % (12.0-16.0); RED CELL COUNT 3.26 10/6/uL (4.7-6.1); WHITE BLOOD CELLS 12.8 10/3/uL (4.5-10.5)
[2017-03-10 13:40] LABS: MANUAL DIFF NO %
[2017-03-10 13:52] LABS: ALBUMIN 2.3 G/DL (3.5-5.0); CALCIUM, SERUM 7.6 MG/DL (8.5-10.4); CHLORIDE, SERUM 108 MMOL/L (96-112); CO2 (CARBON DIOXIDE) 24 MMOL/L (24-34); GFR AFRICAN AMERICAN 9 ML/MIN (>=60); GFR NON AFRICAN AMERICAN 8 ML/MIN (>=60); GLUCOSE, SERUM 92 MG/DL (60-99); PHOSPHORUS, SERUM 3.2 MG/DL (2.5-4.5); POTASSIUM, SERUM 3.7 MMOL/L (3.5-5.3); SODIUM, SERUM 140 MMOL/L (135-148)
[2017-03-10 13:53] LABS: BUN (BLOOD UREA NITROGEN) 86 MG/DL (6-23); CREATININE 7.11 MG/DL (0.70-1.30)
[2017-03-10 21:10] LABS: ASCORBIC ACID (UR NOT ORDER) NEG (NEG); BILIRUBIN, URINE NEGATIVE (NEG); KETONE, URINE NEGATIVE (NEG); LEUKOCYTE ESTERASE(NOT OR LARGE (NEG); WBC (NOT ORDERED) (RFLEX) > 182 (0-5)
[2017-03-11 04:30] LABS: BASOPHILS 0.3 %; BASOPHILS ABSOLUTE 0.03 10/3/uL (0.0-0.16); EOSINOPHILS ABSOLUTE 0.11 10/3/uL (0.0-0.53); HEMATOCRIT 32.2 % (40.0-51.0); HEMOGLOBIN 10.4 g/dL (13.6-17.8); IMMATURE GRANULOCYTES 0.4 %; IMMATURE GRANULOCYTES ABSOLUTE 0.05 10/3/uL (0.0-0.11); LYMPHOCYTES 6.8 %; LYMPHOCYTES ABSOLUTE 0.76 10/3/uL (0.67-4.30); MEAN CORPUS HGB CONC 32.3 g/dL (32.0-36.0); MEAN CORPUSCULAR VOLUME 96.1 fL (80-100); MEAN PLATELET VOLUME 11.1 fL (9.2-13.0); MONOCYTES 8.3 %; MONOCYTES ABSOLUTE 0.93 10/3/uL (0.21-1.20); NEUTROPHILS 83.2 %; NEUTROPHILS ABSOLUTE 9.28 10/3/uL (2.02-8.40); PLATELET COUNT 212 10/3/uL (150-400); RBC DISTRIBUTION WIDTH 15.8 % (12.0-16.0); RED CELL COUNT 3.35 10/6/uL (4.7-6.1); WHITE BLOOD CELLS 11.2 10/3/uL (4.5-10.5)
[2017-03-11 04:35] LABS: MANUAL DIFF NO %
[2017-03-11 04:46] LABS: ALBUMIN 2.2 G/DL (3.5-5.0); BUN (BLOOD UREA NITROGEN) 50 MG/DL (6-23); CALCIUM, SERUM 7.9 MG/DL (8.5-10.4); CHLORIDE, SERUM 109 MMOL/L (96-112); CO2 (CARBON DIOXIDE) 26 MMOL/L (24-34); CREATININE 4.95 MG/DL (0.70-1.30); GFR AFRICAN AMERICAN 14 ML/MIN (>=60); GFR NON AFRICAN AMERICAN 12 ML/MIN (>=60); GLUCOSE, SERUM 74 MG/DL (60-99); PHOSPHORUS, SERUM 3.3 MG/DL (2.5-4.5); SODIUM, SERUM 144 MMOL/L (135-148)
[2017-03-12 06:13] LABS: BASOPHILS 0.1 %; BASOPHILS ABSOLUTE 0.01 10/3/uL (0.0-0.16); EOSINOPHILS 1.3 %; EOSINOPHILS ABSOLUTE 0.11 10/3/uL (0.0-0.53); HEMATOCRIT 31.5 % (40.0-51.0); HEMOGLOBIN 10.5 g/dL (13.6-17.8); IMMATURE GRANULOCYTES 0.2 %; IMMATURE GRANULOCYTES ABSOLUTE 0.02 10/3/uL (0.0-0.11); LYMPHOCYTES 8.4 %; LYMPHOCYTES ABSOLUTE 0.73 10/3/uL (0.67-4.30); MEAN CORPUS HGB CONC 33.3 g/dL (32.0-36.0); MEAN CORPUSCULAR HEMOGLOB 31.7 pg (26.0-34.0); MEAN CORPUSCULAR VOLUME 95.2 fL (80-100); MEAN PLATELET VOLUME 11.2 fL (9.2-13.0); MONOCYTES 10.4 %; MONOCYTES ABSOLUTE 0.91 10/3/uL (0.21-1.20); NEUTROPHILS 79.6 %; NEUTROPHILS ABSOLUTE 6.96 10/3/uL (2.02-8.40); PLATELET COUNT 233 10/3/uL (150-400); RBC DISTRIBUTION WIDTH 15.7 % (12.0-16.0); RED CELL COUNT 3.31 10/6/uL (4.7-6.1); WHITE BLOOD CELLS 8.7 10/3/uL (4.5-10.5)
[2017-03-12 06:17] LABS: MANUAL DIFF NO %
[2017-03-12 06:26] LABS: ALBUMIN 2.3 G/DL (3.5-5.0); CALCIUM, SERUM 7.9 MG/DL (8.5-10.4); CHLORIDE, SERUM 108 MMOL/L (96-112); CO2 (CARBON DIOXIDE) 24 MMOL/L (24-34); SODIUM, SERUM 139 MMOL/L (135-148)
[2017-03-12 06:27] LABS: BUN (BLOOD UREA NITROGEN) 65 MG/DL (6-23); CREATININE 5.91 MG/DL (0.70-1.30); GFR AFRICAN AMERICAN 11 ML/MIN (>=60); GFR NON AFRICAN AMERICAN 10 ML/MIN (>=60); GLUCOSE, SERUM 105 MG/DL (60-99); PHOSPHORUS, SERUM 2.2 MG/DL (2.5-4.5)
[2017-03-13] MEDS ORDERED: RAN500 PO (14:46)
[2017-03-13] MEDS ORDERED: NITROQUICK0.4 MG SL (14:47)
[2017-07-22] MEDS ORDERED: NORCO1 TA2 PO (00:50)
[2017-07-22] MEDS ORDERED: LIPITOR80 MG PO (00:50)
[2017-07-22] MEDS ORDERED: Z100 PO (00:50)
[2017-07-22] MEDS ORDERED: BUSPAR5 PO (00:51)
[2017-07-22] MEDS ORDERED: LOFIBRA134 MG PO (00:51)
[2017-07-22] MEDS ORDERED: COREG25 PO (00:51)
[2017-07-22] MEDS ORDERED: L40 PO (00:51)
[2017-07-22] MEDS ORDERED: LYRICA150 MG PO (00:52)
[2017-07-22] MEDS ORDERED: APRES25 PO (00:52)
[2017-07-22] MEDS ORDERED: NITROSTAT0.4 MG SL (00:52)
[2017-07-22] MEDS ORDERED: SYN.15 PO (00:52)
[2017-07-22] MEDS ORDERED: RAN500 PO (00:53)
[2017-07-22] MEDS ORDERED: PROTONIX PO (00:53)
[2017-07-22] MEDS ORDERED: EFFIENT10 PO (00:53)
[2017-07-22] MEDS ORDERED: CORDARONE PO (00:54)
[2017-07-22] MEDS ORDERED: ASTELIN NAS (00:55)
[2017-07-22] MEDS ORDERED: TUMSROLL PO (00:56)
[2017-07-22] MEDS ORDERED: FISH-EPA1000 MG PO (00:57)
[2017-07-22] MEDS ORDERED: MELATONIN5 M1 PO (00:57)
[2017-07-24] MEDS ORDERED: PROAMAT5 PO (14:26)
[2017-07-24] MEDS ORDERED: ASA5GR PO (14:30)
== END 2017-03-13 19:17 | disposition home or self-care (01) | DRG 871 ==
LOC: ER 19:09 → 1SO 19:31
PROVIDERS: Emergency Medicine; Internal Medicine Nephrology; Nurse Practitioner; Registered Nurse
PROC: 5A1D60Z (ICD-10-PCS; principal; 2017-03-10)
DX: A41.51 Sepsis due to Escherichia coli [E. coli] (principal); N18.6 End stage renal disease; I47.2 Ventricular tachycardia; I13.2 Hypertensive heart and chronic kidney disease with heart failure and with stage 5 chronic kidney disease, or end stage renal disease; I24.8 Other forms of acute ischemic heart disease; Q61.2 Polycystic kidney, adult type; I25.110 Atherosclerotic heart disease of native coronary artery with unstable angina pectoris; N39.0 Urinary tract infection, site not specified; I50.22 Chronic systolic (congestive) heart failure; I95.9 Hypotension, unspecified; I08.3 Combined rheumatic disorders of mitral, aortic and tricuspid valves; I25.5 Ischemic cardiomyopathy; Z68.36 Body mass index [BMI] 36.0-36.9, adult; E87.6 Hypokalemia; D63.1 Anemia in chronic kidney disease; E03.9 Hypothyroidism, unspecified; E66.9 Obesity, unspecified; Z99.2 Dependence on renal dialysis; Z79.82 Long term (current) use of aspirin; Z79.01 Long term (current) use of anticoagulants; Z79.899 Other long term (current) drug therapy; Z98.61 Coronary angioplasty status; Z95.810 Presence of automatic (implantable) cardiac defibrillator; Z95.1 Presence of aortocoronary bypass graft
CPT/HCPCS: 71010; 78452; 80048; 80053; 80069; 80170; 80202; 81001; 82150; 82550; 82553; 83615; 83690; 83735; 83880; 84100; 84145; 84484; 85025; 85610; 85730; 87040; 87077; 87086; 87150; 87186; 93005; 93017; 99285; A9270-GY; A9502; C8929; G0257; J0280; J1580; J2185; J2405; J2543; J2785; J3370; J3475; Q9957

== ENCOUNTER 2017-03-29 07:20 | Observation (INO) | payer BC ==
--- NOTE | ~2017-03-29 | HP ---
History And Physical [facility] [address]. [address] NAME: ROBETRO HUDSON : 60 STATUS : ADM IN [facility]#: [id number] AGE: 56 ADM/REG DATE : 03/29/17 MR#: [id number] REPORT SERV DATE: 03/29/17 DICTATED BY: DATE: REPORT STATUS : Draft TRANSCRIBED BY: MODL DATE: 03/29/17 DATE OF ADMISSION: 03/29/2017 CHIEF COMPLAINT: That he presented to [facility] for shaking, however, he did have some chest pain complaints as well. HISTORY OF PRESENT ILLNESS: Mr. Hudson is a 56-year-old white male, well known to our service with end-stage renal disease, who presented to [facility] for shaking. Apparently, he has been having some chills and sweats as well. He had E coli bacteremia felt secondary to UTI with his polycystic kidney disease, approximately two to three weeks ago. He remains on IV gentamicin for this at the Dialysis Clinic post dialysis. However, while he was at [facility], apparently there was a chest pain complaint, therefore, troponin was checked and it was elevated at 0.6. Therefore, we were asked to admit him and transfer here to [facility]. It is of note that he just had drug-eluting stent placed in 12/2016, who was back in the hospital in 02/2017 approximately two to three weeks ago with a complaint of chest pain as well and had a stress test. Findings were consistent with ischemia that he is known to have. He denies any nausea or vomiting. No dysuria or hematuria. No shortness of breath. He has been on Ranexa since his last hospitalization and he states that that has helped with his chest pains. PAST MEDICAL HISTORY: End-stage renal disease secondary to polycystic kidney disease, an EF of 25%-30%; coronary artery disease, status post stenting, last in 12/2016; hypothyroidism; anemia; cardiac dysrhythmias; nonsustained VT and AICD; anemia, secondary hyperparathyroidism. Left hand has started swelling just since admission. His arm bands are actually tight, which is new, and he is having some left hand pain. ALLERGIES: NONE. SOCIAL HISTORY: He lives with his sister. No tobacco, alcohol, or illicit drug use. FAMILY MEDICAL HISTORY: No end-stage renal disease. MEDICATIONS: Aspirin, BuSpar, Celexa, Lyrica, Lasix, levothyroxine, melatonin, Zyloprim, vitamin D, calcitriol, fenofibrate, nitroglycerin, albuterol, Effient, Pacerone, Lipitor, Coreg, hydralazine, Ranexa. REVIEW OF SYSTEMS: Twelve-point review of systems reviewed and negative with the exception of that in HPI. PHYSICAL EXAMINATION: VITAL SIGNS: Temperature 97.8, blood pressure 107/56, pulse 71, respiratory rate 20, O2 saturation is 95% on 2 L. GENERAL: This is a pleasant, cooperative, white male. He is awake, alert, and oriented x3. No acute distress. Answers questions appropriately. HEENT: Normocephalic and atraumatic. Conjunctivae clear. Sclerae anicteric. Pupils are equal and round. Oral mucosa is moist. History And Physical [address] [address] NAME: ROBERTO HUDSON : 60 STATUS : ADM IN [facility]#: [id number] AGE: 56 ADM/REG DATE : 03/29/17 MR#: [id number] REPORT SERV DATE: 03/29/17 DICTATED BY: DATE: REPORT STATUS : Draft TRANSCRIBED BY: MODL DATE: 03/29/17 NECK: Supple. Carotids are brisk. Neck veins flat. No lymphadenopathy. RESPIRATIONS: Even and unlabored. Breath sounds clear to auscultation. HEART: Rate is regular. No murmur, rub, or gallop. ABDOMEN: Soft, nontender. Bowel sounds active. No masses. No hepatosplenomegaly. No bruits. No CVA tenderness. BACK: Within normal limits. EXTREMITIES: To the left upper extremity, he has a fistula in the left upper arm. Positive thrill and bruit. No signs of infection. To the left hand, he has edema and swelling. SKIN: Warm, dry, and intact. No unusual rash or skin lesions. NEURO: No focal deficits. Mood and affect are pleasant appropriate. PERTINENT LABS AND X-RAYS: None available as they were all done at [facility]. At [facility], WBCs 5.9, H and H 10 and 32, platelets 233. Sodium 143, potassium 3.5, chloride 104, CO2 of 33, BUN of 26, creatinine 4.1, glucose 108. Troponin 0.06. IMPRESSION: 1. Chest pain with mild elevation in troponin. 2. Shaking chills. 3. Recent Escherichia coli bacteremia, felt secondary to urinary tract infection in the setting of his polycystic kidney disease. 4. End-stage renal disease. 5. Coronary artery disease, status post drug-eluting stent. 6. Ischemic cardiomyopathy with ejection fraction of 25%-30%. Positive for automatic implantable cardioverter-defibrillator. 7. Anemia. 8. Left arm and hand swelling. PLAN: Admit observation with cardiac enzymes in a monitored bed. We will check blood cultures, check ultrasound of the left upper extremity. We will hold any antibiotics as he is not febrile and he does not have a white blood cell count elevation. He is already on Ranexa, we will not order it. We will follow, and if cardiac enzymes continue to elevate, may involve Cardiology. He saw Dr. Whitehead last time he was here. Further orders and recommendations pending clinical course. VALDO/CONSTANCE HILDA Irving / [id number] CC: Olegario Hernandez M.D.
[~2017-03-29 07:20] MED LIST changes: +NITROQUICK0.4 MG SL; +RAN500 PO
[2017-03-29] MEDS ORDERED: COREG12 PO (08:14)
[2017-03-29] MEDS ORDERED: APRES25 PO (08:23)
[2017-03-29] MEDS ORDERED: LEVOTHYROXIN150 MCG PO (08:23)
[2017-03-29] MEDS ORDERED: Z100 PO (08:24)
[2017-03-29] MEDS ORDERED: PROVHFA INH (08:25)
[2017-03-29] MEDS ORDERED: L40 PO (08:25)
[2017-03-29] MEDS ORDERED: CELEXA20 PO (08:26)
[2017-03-29] MEDS ORDERED: ROCALTROL0.5 MCG PO (08:26)
[2017-03-29] MEDS ORDERED: TUMSROLL PO (08:27)
[2017-03-29] MEDS ORDERED: BUSPAR5 PO (08:27)
[2017-03-29 12:13] LABS: ALBUMIN 2.4 G/DL (3.5-5.0); BUN (BLOOD UREA NITROGEN) 32 MG/DL (6-23); CALCIUM, SERUM 8.2 MG/DL (8.5-10.4); CHLORIDE, SERUM 107 MMOL/L (96-112); CO2 (CARBON DIOXIDE) 31 MMOL/L (24-34); CREATININE 4.54 MG/DL (0.70-1.30); GFR AFRICAN AMERICAN 16 ML/MIN (>=60); GFR NON AFRICAN AMERICAN 13 ML/MIN (>=60); GLUCOSE, SERUM 88 MG/DL (60-99); PHOSPHORUS, SERUM 4.2 MG/DL (2.5-4.5); POTASSIUM, SERUM 3.6 MMOL/L (3.5-5.3); SODIUM, SERUM 142 MMOL/L (135-148)
[2017-03-29 12:14] LABS: TROPONIN I 0.06 NG/ML (<0.05)
[2017-03-29 12:31] LABS: PROCALCITONIN 0.44 ng/mL (<0.5)
[2017-03-30 06:06] LABS: BASOPHILS 1.4 %; BASOPHILS ABSOLUTE 0.08 10/3/uL (0.0-0.16); EOSINOPHILS 2.1 %; EOSINOPHILS ABSOLUTE 0.12 10/3/uL (0.0-0.53); IMMATURE GRANULOCYTES 0.9 %; IMMATURE GRANULOCYTES ABSOLUTE 0.05 10/3/uL (0.0-0.11); LYMPHOCYTES 17.2 %; MEAN CORPUS HGB CONC 32.3 g/dL (32.0-36.0); MEAN CORPUSCULAR HEMOGLOB 30.5 pg (26.0-34.0); MEAN CORPUSCULAR VOLUME 94.5 fL (80-100); MEAN PLATELET VOLUME 10.8 fL (9.2-13.0); MONOCYTES ABSOLUTE 0.76 10/3/uL (0.21-1.20); NEUTROPHILS 65.4 %; NEUTROPHILS ABSOLUTE 3.82 10/3/uL (2.02-8.40); PLATELET COUNT 219 10/3/uL (150-400); RBC DISTRIBUTION WIDTH 17.8 % (12.0-16.0); RED CELL COUNT 3.28 10/6/uL (4.7-6.1); WHITE BLOOD CELLS 5.8 10/3/uL (4.5-10.5)
[2017-03-30 06:10] LABS: MANUAL DIFF NO %
[2017-03-30 11:50] LABS: BASOPHILS ABSOLUTE 0.06 10/3/uL (0.0-0.16); EOSINOPHILS 1.5 %; EOSINOPHILS ABSOLUTE 0.09 10/3/uL (0.0-0.53); HEMATOCRIT 30.4 % (40.0-51.0); IMMATURE GRANULOCYTES 0.8 %; IMMATURE GRANULOCYTES ABSOLUTE 0.05 10/3/uL (0.0-0.11); LYMPHOCYTES 17.6 %; LYMPHOCYTES ABSOLUTE 1.05 10/3/uL (0.67-4.30); MEAN CORPUS HGB CONC 32.9 g/dL (32.0-36.0); MEAN CORPUSCULAR HEMOGLOB 31.3 pg (26.0-34.0); MEAN PLATELET VOLUME 10.6 fL (9.2-13.0); MONOCYTES 9.9 %; MONOCYTES ABSOLUTE 0.59 10/3/uL (0.21-1.20); NEUTROPHILS 69.2 %; NEUTROPHILS ABSOLUTE 4.12 10/3/uL (2.02-8.40); PLATELET COUNT 223 10/3/uL (150-400); RBC DISTRIBUTION WIDTH 17.7 % (12.0-16.0)
[2017-03-30 11:52] LABS: MANUAL DIFF NO %
[2017-03-30 12:01] LABS: ALBUMIN 2.5 G/DL (3.5-5.0); BUN (BLOOD UREA NITROGEN) 43 MG/DL (6-23); CALCIUM, SERUM 8.7 MG/DL (8.5-10.4); CHLORIDE, SERUM 102 MMOL/L (96-112); CO2 (CARBON DIOXIDE) 30 MMOL/L (24-34); CREATININE 5.81 MG/DL (0.70-1.30); GFR AFRICAN AMERICAN 12 ML/MIN (>=60); GFR NON AFRICAN AMERICAN 10 ML/MIN (>=60); GLUCOSE, SERUM 125 MG/DL (60-99); PHOSPHORUS, SERUM 4.2 MG/DL (2.5-4.5); POTASSIUM, SERUM 3.4 MMOL/L (3.5-5.3); SODIUM, SERUM 137 MMOL/L (135-148)
[2017-07-22] MEDS ORDERED: NORCO1 TA2 PO (00:50)
[2017-07-22] MEDS ORDERED: Z100 PO (00:50)
[2017-07-22] MEDS ORDERED: LIPITOR80 MG PO (00:50)
[2017-07-22] MEDS ORDERED: BUSPAR5 PO (00:51)
[2017-07-22] MEDS ORDERED: COREG25 PO (00:51)
[2017-07-22] MEDS ORDERED: L40 PO (00:51)
[2017-07-22] MEDS ORDERED: LOFIBRA134 MG PO (00:51)
[2017-07-22] MEDS ORDERED: SYN.15 PO (00:52)
[2017-07-22] MEDS ORDERED: APRES25 PO (00:52)
[2017-07-22] MEDS ORDERED: LYRICA150 MG PO (00:52)
[2017-07-22] MEDS ORDERED: NITROSTAT0.4 MG SL (00:52)
[2017-07-22] MEDS ORDERED: RAN500 PO (00:53)
[2017-07-22] MEDS ORDERED: PROTONIX PO (00:53)
[2017-07-22] MEDS ORDERED: EFFIENT10 PO (00:53)
[2017-07-22] MEDS ORDERED: CORDARONE PO (00:54)
[2017-07-22] MEDS ORDERED: ASTELIN NAS (00:55)
[2017-07-22] MEDS ORDERED: TUMSROLL PO (00:56)
[2017-07-22] MEDS ORDERED: FISH-EPA1000 MG PO (00:57)
[2017-07-22] MEDS ORDERED: MELATONIN5 M1 PO (00:57)
[2017-07-24] MEDS ORDERED: PROAMAT5 PO (14:26)
[2017-07-24] MEDS ORDERED: ASA5GR PO (14:30)
== END 2017-03-30 18:27 | disposition home or self-care (01) ==
LOC: 2SO 07:20
PROVIDERS: Nurse Practitioner; Registered Nurse
DX: R07.9 Chest pain, unspecified (principal); N18.6 End stage renal disease; I25.10 Atherosclerotic heart disease of native coronary artery without angina pectoris; R79.89 Other specified abnormal findings of blood chemistry; E03.9 Hypothyroidism, unspecified; I12.0 Hypertensive chronic kidney disease with stage 5 chronic kidney disease or end stage renal disease; D63.1 Anemia in chronic kidney disease; N25.81 Secondary hyperparathyroidism of renal origin; N39.0 Urinary tract infection, site not specified; B96.20 Unspecified Escherichia coli [E. coli] as the cause of diseases classified elsewhere; I25.5 Ischemic cardiomyopathy; I25.2 Old myocardial infarction; E78.00 Pure hypercholesterolemia, unspecified; M19.90 Unspecified osteoarthritis, unspecified site; F41.9 Anxiety disorder, unspecified; F32.9 Major depressive disorder, single episode, unspecified; Z79.82 Long term (current) use of aspirin; Z79.899 Other long term (current) drug therapy; Z95.1 Presence of aortocoronary bypass graft; Z87.891 Personal history of nicotine dependence; Z98.890 Other specified postprocedural states
CPT/HCPCS: 71020; 80069; 83735; 84145; 84484; 85025; 87040; 93005; 93971; 96372; A9270-GY; G0378

== ENCOUNTER 2017-07-03 19:29 | Inpatient (IN) | payer BC ==
[~2017-07-03] VITALS: Ht 167.6 cm; Wt 96.4 kg
--- NOTE | ~2017-07-03 | HP ---
History And Physical [facility] [id number] [facility] [place]. [address] NAME: ROBERTO HUDSON : 60 STATUS : ADM IN PAT#: [id number] AGE: 57 ADM/REG DATE : 07/03/17 MR#: [id number] REPORT SERV DATE: 07/04/17 DICTATED BY: BÁRBARA GENTILE DATE: 07/03/17 REPORT STATUS : Draft TRANSCRIBED BY: MODL DATE: 07/03/17 DATE OF ADMISSION: 07/03/2017 NEPHROLOGY ADMISSION NOTE REASON FOR ADMISSION: CVA. HISTORY OF PRESENT ILLNESS: Mr. Hudson is a 57-year-old white male with multiple medical problems including end-stage renal disease from polycystic kidney disease, hypertension, ischemic cardiomyopathy, CABG, nonsustained ventricular tachycardia, status post AICD, and hypothyroidism, who states that sometime in April, he began developing episodes where he became very weak and shaky in his legs. He originally told [facility] that the weakness was primarily in his right lower leg, but he now states that it was both legs. The weakness did improve for a while, but has gotten worse recently. He went to [place] this morning and began shaking very significantly in his legs and was having difficulty standing. When he got home, he actually fell and hit his head, and EMS was called. He has no difficulty in speech. No focal weakness in his upper extremities. He does report some tingling in his right hand, which has resolved. On evaluation at [facility], he had a CT scan without contrast, which showed a focal hypoattenuation in the anterior limb of the left internal capsule suspicious for an age-indeterminate lacunar type infarction. No acute hemorrhage. The patient has been admitted for further workup and evaluation of CVA. PAST MEDICAL HISTORY AND SURGICAL HISTORY: 1. End-stage renal disease secondary to polycystic kidney disease. Dialyzes Thursday, , Thursday at [facility]. 2. Chronic systolic congestive heart failure, ejection fraction 30%. Known ischemic cardiomyopathy, status post CABG and stents. 3. Hypothyroidism. 4. Anemia of chronic kidney disease. 5. Cardiac arrhythmias on amiodarone. 6. History of nonsustained ventricular tachycardia, status post AICD. 7. Secondary hyperparathyroidism. 8. Umbilical hernia repair. 9. Left upper extremity AV fistula. ALLERGIES: NO KNOWN DRUG ALLERGIES. SOCIAL HISTORY: Quit smoking in 2000. No alcohol. He previously worked as a truck driver supervisor. HOME MEDICATIONS: 1. Lyrica 150 twice a day. 2. Vitamin D3 3000 units daily. 3. Carvedilol 25 twice a day. 4. Amiodarone 200 twice a day. 5. Effient 10 mg daily. History And Physical [address] [address] NAME: ROBERTO HUDSON : 60 STATUS : ADM IN [facility]#: [id number] AGE: 57 ADM/REG DATE : 07/03/17 MR#: [id number] REPORT SERV DATE: 07/04/17 DICTATED BY: BÁRBARA GENTILE DATE: 07/03/17 REPORT STATUS : Draft TRANSCRIBED BY: CONSTANCE DATE: 07/03/17 6. Levothyroxine 150 mcg daily. 7. Atorvastatin 80 mg daily. 8. Fenofibrate, dose unknown. 9. Aspirin 81 daily. 10.Melatonin 5 at q.h.s. 11.Hydralazine 25 twice a day. 12.Buspirone 5 mg twice a day. 13.Nitroglycerin p.r.n. 14.Celexa 20 daily. 15.Rocaltrol dose unknown. 16.Allopurinol 100 mg daily. 17.Ranexa 500 twice a day. 18.Albuterol 1-2 puffs q.4 hours p.r.n. shortness of breath. REVIEW OF SYSTEMS: All systems reviewed and negative excluding those mentioned and highlighted in history of present illness. PHYSICAL EXAMINATION: VITAL SIGNS: Temperature 98.2, pulse 61, respiratory rate 16, blood pressure 111/64. GENERAL: This is a chronically ill, overweight white male, who looks older than his stated age, resting comfortably. No acute distress. HEENT: Normocephalic, atraumatic. Oropharynx clear. No exudate. NECK: Supple. No JVD or thyromegaly. No carotid bruits. Trachea midline. No stridor. CARDIOVASCULAR: Regular rate and rhythm S1, S2 without rubs or gallops. Point of maximal impulse nondisplaced. RESPIRATORY: Mostly clear. No wheeze, rhonchi, tachypnea, or accessory muscles in use. GI: Abdomen is obese, soft, nontender, nondistended. No hepatosplenomegaly appreciated. Bowel sounds positive in all four quadrants. No rebound or guarding. EXTREMITIES: No cyanosis, clubbing, or edema. Distal pulses 2+ symmetrically intact. SKIN: No rash or breakdown. Normal turgor. NEUROLOGIC: Cranial nerves 2-12 grossly intact. Motor sensory examinations for the most part intact. Strength 4/5 in the lower extremities, 5/5 in the upper extremities. Sensory examination within normal limits. MUSCULOSKELETAL: Full range of motion in all joints without crepitus or joint effusions. LABS AND DIAGNOSTIC DATA: WBC 4.5, hemoglobin 13.2, hematocrit 40.9, platelets 108. Sodium 142, potassium 4.3, chloride 101, bicarb 31, BUN 55, creatinine 6.0, glucose 86. ASSESSMENT: 1. Suspected left internal capsule lacunar infarct - age unknown. 2. Bilateral lower extremity weakness and gait instability? secondary to suspected left internal capsule lacunar infarct. Started in April, improved, and then worsened today. 3. Heart failure with reduced ejection fraction of 30%. 4. Coronary artery disease with history of stents and coronary artery bypass graft in 2009. 5. Hypothyroidism. History And Physical [address] [address] NAME: ROBERTO HUDSON : 60 STATUS : ADM IN [facility]#: [id number] AGE: 57 ADM/REG DATE : 07/03/17 MR#: [id number] REPORT SERV DATE: 07/04/17 DICTATED BY: BÁRBARA GENTILE DATE: 07/03/17 REPORT STATUS : Draft TRANSCRIBED BY: CONSTANCE DATE: 07/03/17 6. Nonsustained ventricular tachycardia, status post automatic implantable cardioverter- defibrillator. 7. End-stage renal disease, on hemodialysis; Thursday, , Thursday in [place]. PLAN: 1. Check MRI, echocardiogram, and carotids. 2. PT evaluation. 3. Neurology evaluation. 4. Hemodialysis tomorrow. 5. May benefit from inpatient rehabilitation. 6. [facility] to follow. JENNI/CONSTANCE Bárbara Gentile M.D. / [id number] CC: Bárbara Gentile M.D.
--- NOTE | ~2017-07-03 | CN ---
Consultation Report [facility] [address] [place] [place]. [address] NAME: ROBERTO HUDSON : 60 STATUS : ADM IN PAT#: [id number] AGE: 57 ADM/REG DATE : 07/03/17 MR#: [id number] REPORT SERV DATE: 07/04/17 DICTATED BY: DATE: REPORT STATUS : Draft TRANSCRIBED BY: MODL DATE: 07/04/17 NEUROLOGY CONSULTATION DATE OF CONSULTATION: 07/04/2017 REASON FOR CONSULT: Stroke. HISTORY OF PRESENT ILLNESS: This is a 57-year-old male who presented to [facility] on 07/03/2017. The patient has had a month's duration of intermittent gait abnormality. The patient reports balance problem when legs giving out. The patient reports right leg was worse compared to the right. The patient otherwise denies any arm abnormalities. The patient reports some numbness in the right lower extremity when the symptoms first started. Denies dysarthria, dysphagia, or language difficulties, and denies any facial involvement. The patient reports the symptoms usually last about an hour, spontaneously resolve. Otherwise, no other complaints at the time of evaluation. The patient reports stable back pain secondary to lower back issue, otherwise denies cervical pain. He has had CT scan at [facility], at which time CT scan of the brain without contrast demonstrated focal hypoattenuation in the left internal capsule anterior limb concerning for age- indeterminate stroke. No imaging was obtained at [facility]. The patient's symptom has been stable since the hospitalization. Denies recent change in the medication and denies any recent illness, fever, chills, nausea, vomiting, chest pain, or shortness of breath. PAST MEDICAL HISTORY: The patient's past medical history is significant for end-stage renal disease, on hemodialysis Thursday, , and Thursday, as well as chronic systolic congestive heart failure, EF of 30% with ischemic cardiomyopathy status post coronary artery bypass surgery, stents, as well as pacemaker placement with the cardiac arrhythmia. The patient does have a defibrillator placement secondary to nonsustained ventricular tachycardia, history of hyperparathyroidism secondary to renal disease, history of umbilical cord hernia repair, as well as left upper extremity fistula. The patient also has had a history of anemia secondary to chronic kidney disease and hypothyroidism. ALLERGIES: THE PATIENT REPORTS NO KNOWN DRUG ALLERGIES. MEDICATION: Reviewed. Of note, the patient was noted to be on multiple depression medications. SOCIAL HISTORY: The patient quit tobacco in 2000. Currently, no tobacco, alcohol, or recreational drug usage. REVIEW OF SYSTEMS: Negative except for those mentioned in the HPI. PHYSICAL EXAMINATION: Consultation Report [place] [place] [id number] [place]. [address] NAME: ROBERTO HUDSON : 60 STATUS : ADM IN PAT#: [id number] AGE: 57 ADM/REG DATE : 07/03/17 MR#: [id number] REPORT SERV DATE: 07/04/17 DICTATED BY: DATE: REPORT STATUS : Draft TRANSCRIBED BY: MODL DATE: 07/04/17 VITAL SIGNS: At the time of evaluation, the patient was noted to have vital signs with T- max of 98.2, heart rate of 50 to 88, respiration of 16 to 18, and blood pressure of 106 to 132 over 58 to 81. GENERAL: The patient is well developed, well nourished, in no acute distress. CARDIOVASCULAR: Regular rate and rhythm. No carotid bruits were otherwise auscultated. PULMONARY: Clear to auscultation bilaterally. NEUROLOGIC: Generally, the patient is alert, oriented to person, place, year, and month. Intact registration recall. Follows simple and 2-step commands. Cranial nerves 2 through 12, pupils equal, round, and reactive to light. Extraocular eye movement was noted to be intact with intact evlox-iq-oawcbo response. The patient was noted to have decreased nasolabial fold on the right, as well as mild right facial weakness. Tongue was midline and symmetrical palatal movement. Mild decreased hearing in bilateral ears. The patient was noted to have normal extraocular eye movement with intact gklis-pj-ekhove response. He reports symmetrical facial sensation. The patient demonstrated 5/5 bilateral upper and lower extremity strength. The patient demonstrated no clear pronator drift. He reports symmetrical bilateral upper and lower extremities sensation. Deep tendon reflex was 2+ throughout. Mild asterixis in the left upper extremity at the time of evaluation, otherwise normal xparvu-ye-vejq examination without ataxia. LABORATORY STUDIES: Demonstrated white blood cell count of 3.9, hemoglobin of 13.1, hematocrit of 39.7, platelet count of 95. Chemistry panel: Sodium 140, potassium 3.7, chloride 101, bicarb 27, BUN of 59, creatinine 6.51, glucose of 76, calcium of 8.5, serum CPK level of 56, vitamin B12 level was low of 171, TSH level of 3.67. No neuroimaging was obtained. IMPRESSION: 1. CVA. 2. Intermittent weakness. 3. Vitamin B12 deficiency. CT brain at [facility] apparently was demonstrated age-indeterminate stroke. The patient was noted to have intermittent balance issue and gait abnormality likely is secondary to multifactorial etiology due to CVA as well as a low vitamin B12. The patient, in addition, on examination, was also noted to have mild asterixis in the left upper extremity. The patient was noted to be on multiple psychiatric medications, concern for possible other metabolic etiology as well as components of serotonin syndrome. We are recommending Psychiatry consultation on 07/06/2017, for management of psychiatric medication as well as obtain records and imaging study from [facility]. We will check laboratory study. We will supplement the patient with vitamin B12 and obtain PT/OT evaluation. May also consider the patient on Plavix. RECOMMENDATION: 1. We will consider adding Plavix. 2. Echocardiogram and carotid Doppler study. 3. PT/OT. 4. Fasting lipid panel as well as hemoglobin A1c, serum ammonia level, TSH, free T4, Consultation Report [address] [place]. [address] NAME: ROBERTO HUDSON : 60 STATUS : ADM IN [facility]#: [id number] AGE: 57 ADM/REG DATE : 07/03/17 MR#: [id number] REPORT SERV DATE: 07/04/17 DICTATED BY: DATE: REPORT STATUS : Draft TRANSCRIBED BY: MODL DATE: 07/04/17 thiamine level, folate with morning labs. 5. CT scan of the C-spine and L-spine without contrast. 6. We will obtain records from [facility]. 7. We will also supplement the patient with vitamin B12. [facility] Syed Powell MD / [id number] CC: Bárbara Brown M.D.
[~2017-07-03 19:29] MED LIST changes: +BUSPAR5 PO; +CELEXA20 PO; +COREG12 PO; +L40 PO; +LEVOTHYROXIN150 MCG PO; +PROVHFA INH; +ROCALTROL0.5 MCG PO; +TUMSROLL PO; +Z100 PO
[2017-07-03] MEDS ORDERED: Z100 PO (22:13)
[2017-07-03] MEDS ORDERED: L40 PO (22:14)
[2017-07-03] MEDS ORDERED: APRES25 PO (22:14)
[2017-07-03] MEDS ORDERED: CELEXA20 PO (22:14)
[2017-07-03] MEDS ORDERED: EFFIENT10 PO (22:14)
[2017-07-03] MEDS ORDERED: VENTOLIN HFA PO (22:15)
[2017-07-04 06:50] LABS: BASOPHILS 1.5 %; BASOPHILS ABSOLUTE 0.06 10/3/uL (0.0-0.16); EOSINOPHILS ABSOLUTE 0.08 10/3/uL (0.0-0.53); IMMATURE GRANULOCYTES 0.5 %; IMMATURE GRANULOCYTES ABSOLUTE 0.02 10/3/uL (0.0-0.11); LYMPHOCYTES 25.8 %; LYMPHOCYTES ABSOLUTE 1.01 10/3/uL (0.67-4.30); MEAN CORPUSCULAR HEMOGLOB 32.7 pg (26.0-34.0); MEAN PLATELET VOLUME 11.8 fL (9.2-13.0); MONOCYTES 15.8 %; MONOCYTES ABSOLUTE 0.62 10/3/uL (0.21-1.20); NEUTROPHILS 54.4 %; NEUTROPHILS ABSOLUTE 2.13 10/3/uL (2.02-8.40); RBC DISTRIBUTION WIDTH 14.5 % (12.0-16.0); WHITE BLOOD CELLS 3.9 10/3/uL (4.5-10.5)
[2017-07-04 06:56] LABS: HEMATOCRIT 39.7 % (40.0-51.0); HEMOGLOBIN 13.1 g/dL (13.6-17.8); MANUAL DIFF NO %; PLATELET COUNT 95 10/3/uL (150-400); RED CELL COUNT 4.01 10/6/uL (4.7-6.1)
[2017-07-04 07:26] LABS: ALBUMIN 3.5 G/DL (3.5-5.0); BUN (BLOOD UREA NITROGEN) 59 MG/DL (6-23); CALCIUM, SERUM 8.5 MG/DL (8.5-10.4); CHLORIDE, SERUM 101 MMOL/L (96-112); CK-MB 1.3 NG/ML; CO2 (CARBON DIOXIDE) 27 MMOL/L (24-34); CPK 56 U/L (0-200); CREATININE 6.51 MG/DL (0.70-1.30); GFR AFRICAN AMERICAN 10 ML/MIN (>=60); GFR NON AFRICAN AMERICAN 9 ML/MIN (>=60); GLUCOSE, SERUM 76 MG/DL (60-99); PHOSPHORUS, SERUM 6.3 MG/DL (2.5-4.5); POTASSIUM, SERUM 3.7 MMOL/L (3.5-5.3); SODIUM, SERUM 140 MMOL/L (135-148)
[2017-07-05 05:48] LABS: CHOL/HDL RATIO(NOT ORDER) 6.3 (0-5); FOLATE 7.4 NG/ML (>5.2); FREE T4 1.39 NG/DL (0.76-1.46); ULTRASENSITIVE TSH 2.71 MCIU/ML (0.358-3.740)
[2017-07-05 10:07] LABS: GLYCOHEMOGLOBIN (HbA1c) 5.1 % (4.7-6.1)
[2017-07-07 06:03] LABS: BASOPHILS 0.6 %; BASOPHILS ABSOLUTE 0.03 10/3/uL (0.0-0.16); EOSINOPHILS 1.2 %; EOSINOPHILS ABSOLUTE 0.06 10/3/uL (0.0-0.53); HEMATOCRIT 39.6 % (40.0-51.0); HEMOGLOBIN 13.1 g/dL (13.6-17.8); IMMATURE GRANULOCYTES 0.6 %; IMMATURE GRANULOCYTES ABSOLUTE 0.03 10/3/uL (0.0-0.11); LYMPHOCYTES 22.2 %; LYMPHOCYTES ABSOLUTE 1.11 10/3/uL (0.67-4.30); MANUAL DIFF NO %; MEAN CORPUS HGB CONC 33.1 g/dL (32.0-36.0); MEAN CORPUSCULAR HEMOGLOB 32.3 pg (26.0-34.0); MEAN CORPUSCULAR VOLUME 97.8 fL (80-100); MEAN PLATELET VOLUME 12.3 fL (9.2-13.0); MONOCYTES 11.2 %; MONOCYTES ABSOLUTE 0.56 10/3/uL (0.21-1.20); NEUTROPHILS 64.2 %; PLATELET COUNT 118 10/3/uL (150-400); RED CELL COUNT 4.05 10/6/uL (4.7-6.1)
[2017-07-07 06:18] LABS: A/G RATIO 1.1 (0.7-1.9); ALBUMIN 3.6 G/DL (3.5-5.0); ALKALINE PHOSPHATASE 34 U/L (45-117); CHLORIDE, SERUM 102 MMOL/L (96-112); CO2 (CARBON DIOXIDE) 23 MMOL/L (24-34); GLOBULIN 3.2 G/DL (2.5-4.1); GLUCOSE, SERUM 86 MG/DL (60-99); POTASSIUM, SERUM 4.1 MMOL/L (3.5-5.3); SGOT(AST) 23 U/L (5-40); SGPT(ALT) 25 U/L (5-65); SODIUM, SERUM 137 MMOL/L (135-148); TOTAL BILIRUBIN 0.4 MG/DL (0-1.2); TOTAL PROTEIN 6.8 G/DL (6.0-8.5)
[2017-07-07 06:19] LABS: BUN (BLOOD UREA NITROGEN) 75 MG/DL (6-23); CREATININE 7.72 MG/DL (0.70-1.30); GFR AFRICAN AMERICAN 8 ML/MIN (>=60); GFR NON AFRICAN AMERICAN 7 ML/MIN (>=60); PHOSPHORUS, SERUM 4.9 MG/DL (2.5-4.5)
[2017-07-08 13:55] LABS: BASOPHILS 0.8 %; BASOPHILS ABSOLUTE 0.04 10/3/uL (0.0-0.16); EOSINOPHILS 1.8 %; EOSINOPHILS ABSOLUTE 0.09 10/3/uL (0.0-0.53); HEMATOCRIT 40.3 % (40.0-51.0); HEMOGLOBIN 13.4 g/dL (13.6-17.8); IMMATURE GRANULOCYTES 0.2 %; IMMATURE GRANULOCYTES ABSOLUTE 0.01 10/3/uL (0.0-0.11); LYMPHOCYTES 26.9 %; LYMPHOCYTES ABSOLUTE 1.37 10/3/uL (0.67-4.30); MEAN CORPUS HGB CONC 33.3 g/dL (32.0-36.0); MEAN CORPUSCULAR HEMOGLOB 32.3 pg (26.0-34.0); MEAN CORPUSCULAR VOLUME 97.1 fL (80-100); MEAN PLATELET VOLUME 12.6 fL (9.2-13.0); MONOCYTES 11.4 %; MONOCYTES ABSOLUTE 0.58 10/3/uL (0.21-1.20); NEUTROPHILS 58.9 %; NEUTROPHILS ABSOLUTE 3.01 10/3/uL (2.02-8.40); PLATELET COUNT 123 10/3/uL (150-400); RBC DISTRIBUTION WIDTH 14.3 % (12.0-16.0); RED CELL COUNT 4.15 10/6/uL (4.7-6.1); WHITE BLOOD CELLS 5.1 10/3/uL (4.5-10.5)
[2017-07-08 13:56] LABS: MANUAL DIFF NO %
[2017-07-08 14:09] LABS: ALBUMIN 3.7 G/DL (3.5-5.0); BUN (BLOOD UREA NITROGEN) 57 MG/DL (6-23); CALCIUM, SERUM 8.5 MG/DL (8.5-10.4); CHLORIDE, SERUM 103 MMOL/L (96-112); CO2 (CARBON DIOXIDE) 22 MMOL/L (24-34); GFR AFRICAN AMERICAN 9 ML/MIN (>=60); GFR NON AFRICAN AMERICAN 8 ML/MIN (>=60); GLUCOSE, SERUM 107 MG/DL (60-99); PHOSPHORUS, SERUM 4.4 MG/DL (2.5-4.5); POTASSIUM, SERUM 4.4 MMOL/L (3.5-5.3); SODIUM, SERUM 136 MMOL/L (135-148)
[2017-07-08 16:28] LABS: THIAMINE 14.4 nmol/L (())
== END 2017-07-08 18:26 | DRG 64 ==
LOC: ENRESERV → ENRESERVTM → ENRESERVDT → 1SO 21:15
PROVIDERS: Internal Medicine Nephrology; Psychiatry & Neurology Neurology; Registered Nurse
PROC: 5A1D60Z (ICD-10-PCS; principal; 2017-07-04)
DX: I63.9 Cerebral infarction, unspecified (principal); N18.6 End stage renal disease; I13.2 Hypertensive heart and chronic kidney disease with heart failure and with stage 5 chronic kidney disease, or end stage renal disease; N25.81 Secondary hyperparathyroidism of renal origin; I47.1 Supraventricular tachycardia; Q61.2 Polycystic kidney, adult type; I50.22 Chronic systolic (congestive) heart failure; D63.1 Anemia in chronic kidney disease; I25.5 Ischemic cardiomyopathy; I25.10 Atherosclerotic heart disease of native coronary artery without angina pectoris; E03.9 Hypothyroidism, unspecified; E53.8 Deficiency of other specified B group vitamins; Z99.2 Dependence on renal dialysis; Z79.82 Long term (current) use of aspirin; Z79.899 Other long term (current) drug therapy; Z87.891 Personal history of nicotine dependence; Z95.810 Presence of automatic (implantable) cardiac defibrillator; Z95.1 Presence of aortocoronary bypass graft; Z98.61 Coronary angioplasty status; Z91.81 History of falling
CPT/HCPCS: 70498; 72125; 72131; 80053; 80061; 80069; 82140; 82550; 82553; 82607; 82746; 83036; 83735; 84425; 84439; 84443; 85025; 93880; 97110-GP; 97116-GP; 97161-GP; 97165-GO; A9270-GY; C8929; G0257; Q9957; Q9967